=== PATIENT | female | born 1945 | race African-American/Black ===

== ENCOUNTER 2025-01-07 16:04 | Inpatient (IN) | payer OTHER, SELFPAY ==
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
[2025-01-07 16:16] VITALS: BP 157/73; PULSE 83; RESP 18; TEMP 36.4; O2SAT 95; BMI 26.4
[2025-01-07 16:44] LABS: MANUAL DIFF FLAG NO
[2025-01-07 16:45] LABS: Hematocrit 41.6 % (37.0-47.0); Hemoglobin 14.0 g/dl (12.0-16.0); Imm Gran Abs Auto 0.03 X10*3/uL (0.00-0.03); Imm Gran Pct Auto 0.4 % (0.0-0.4); Lymphocytes Absolute Auto 2.0 X10*3/uL (1.2-4.9); Mean Corpuscular HGB Conc 33.7 g/dl (31.0-35.0); Mean Corpuscular Hemoglobin 31.5 pg (27.0-33.0); Mean Corpuscular Volume 93.7 fL (80.0-98.0); NRBC Abs Auto 0.000 X10*3/uL (0.0-0.012); NRBC Pct Auto 0.0 /100WBC (0.0-0.2); Platelet Count 197 X10*3/uL (160-400); Red Blood Count 4.44 X10*6/uL (4.20-5.50); White Blood Count 7.9 X10*3/uL (4.8-10.8)
[2025-01-07 16:46] LABS: Appearance Urine Clear; Glucose Urine UA Negative (Negative); PH 5.5 (5.0-9.0); Specific Gravity - Urine 1.025 (1.005-1.025); UMIC TRIGGER UACC YES
[2025-01-07 16:50] LABS: UACC Culture Trigger YES
[2025-01-07 17:01] LABS: Alanine Aminotransferase 21 U/L (0-31); Albumin Level 4.1 g/dL (3.5-5.0); Alkaline Phosphatase 86 U/L (39-117); Anion Gap 11 (12-20); Aspartate Amino Transferase 20 U/L (5-31); Blood Urea Nitrogen 20 mg/dL (9-16); Calcium 8.8 mg/dL (8.4-10.2); Carbon Dioxide 27 mmol/L (22-29); Chloride 110 mmol/L (96-108); Creatinine Clr Calc Pharmacy 45.0; Estimated Glomerular Filt Rate 57; Magnesium 2.0 mg/dL (1.6-2.6); Potassium 4.2 mmol/L (3.3-5.1); Sodium 144 mmol/L (135-145); Total Protein 6.6 g/dL (6.5-8.0)
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
[2025-01-07 18:03] LABS: Resp Syncy Virus RNA Qual PCR NEGATIVE (Negative); SARS COV2 PCR INHOUSE NEGATIVE (Negative)
[2025-01-07 22:23] VITALS: BP 166/84; PULSE 95; RESP 18; TEMP 36; O2SAT 95
--- NOTE | 2025-01-07 23:31 | MHC.CARE ---
Evaluated by care team and found appropriate for [facility]PL[facility]. Pt is placed on a section 12 and bed search will begin. If placement is not secured a mental status update will occur to determine if pt continues to meet criteria for a higher level of care. RN notified and ED attending in agrrement with the dispo at this time. Attempted to contact pt's son/HCP to inform him of the disposition determined however, he was unable to be reached and mailbox was full therefore a voicemail was unable to be provided at this time. It is to be noted, he was agreeable and open to all treatment recommendations when initially contacted for collateral however, did state that he had to work in the morning and requested to be updated after 330PM tomorrow and also stated that he would be coming to the ED as he was asked to bring pt's inhaler by RN. Information will be passed to first shift to contact son and inform him of bed search.
--- NOTE | 2025-01-08 | ECG_ITS ---
Test Reason : CHECK PROLONGED QT Blood Pressure : */* mmHG Vent. Rate : 65 BPM Atrial Rate : 65 BPM P-R Int : 202 ms QRS Dur : 74 ms QT Int : 420 ms P-R-T Axes : 63 44 66 degrees QTcB Int : 436 ms Normal sinus rhythm Normal ECG No previous ECGs available Referred By: Clemente Pineda Electronically Signed By: CHRIS MOYER MD
--- NOTE | 2025-01-08 02:38 | PC.NURSE ---
Took report from off-going RN at 0115 hours. Pt is a 79 y/o female who presented to the ED with son for evaluation of increasing aggression and agitation. Pt is poor historian. History is significant for dementia, and attends a day program. Resides with son and son's girlfriend. Pt is arousable with verbal stimuli, but is only oriented to son and son's girlfriend. Not fully understanding why she is here at [facility], needs frequent re-orientation to surroundings by staff. Ambulates with a steady gait unassisted. Uses the bathroom as desired. Experiences brief episodes of lucid speech and thought. Recommendation by Care team is inpatient level of care. Pt is on a section 12 and a bed search is ongoing. Will continue to monitor for any changes.
--- NOTE | 2025-01-08 05:27 | PC.NURSE ---
Pt has been sleeping most of the shift, appears comfortable. Changes positions independently as desired. Easily arousable to verbal stimuli. No needs verbalized at this time. Safety checks continued every 15 min. Will continue to monitor for any changes.
--- NOTE | 2025-01-08 05:32 | PC.NURSE ---
Pt is OOB to use the bathroom and then ambulated back to bed without issue. Minimal redirecting needed.
--- NOTE | 2025-01-08 07:42 | PHA.MEDREC ---
Pharmacy Consult ? Medication Reconciliation Pharmacy has reviewed the medication reconciliation done by nursing.
--- NOTE | 2025-01-08 07:51 | PC.NURSE ---
Assumed care of patient at 0645, patient appears to be in no apparent distress this am, sat up in chair to eat breakfast, now laying back in bed, respirations even and unlabored. Continue plan of care for Hanna IPLOC
[2025-01-08 08:20] VITALS: BP 144/67; PULSE 73; RESP 16; TEMP 36.8; O2SAT 98
[2025-01-08 08:21] VITALS: BP 144/67
[2025-01-08 11:04] LABS: Cannabinoid Screen Urine Not Detected (Not Detect)
[2025-01-08 14:56] VITALS: BP 147/72; PULSE 87; RESP 16; TEMP 36.6; O2SAT 96
[2025-01-08 18:57] VITALS: BMI 26.0
--- NOTE | 2025-01-08 18:59 | PC.ADMIT ---
Pt a 79-year-old female with a history of early dementia who presented to the ED with her son due to concerns of increased agitation and disorganization at the day program she attends from 8am-2pm called [facility] [employer] [facility] . Pt was admitted to ~14:40 by wheelchair. During the admission process pt is calm, cooperative, able to answer questions logically and clearly, and AOX2 (person and place, but poor insight into situation and not remembering the date). She denies all psych symptoms and asks why am I here? . Pt explained why she is here and was accepting of answer provided. Pt able to remember who her PCP is, insurance, preferred pharmacy and signed ROIs. Pt reassured t/w that she knew what it was that she was signing. Pt is allergic to aspirin. She does not use alcohol or other substance. States she smokes 6 cigarettes a day for the past 2 years. Wants the nicotine patch. Declined quitworks. Skin check completed with no significant findings.
[2025-01-08 20:00] VITALS: BP 150/76; PULSE 88; RESP 17; TEMP 36.7; O2SAT 96
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
[2025-01-09 08:13] LABS: Hemoglobin A1C 135.5703 umol/L; Total Hemoglobin (HGBA1C) 3644.8763 umol/L
[2025-01-09 08:20] LABS: Alanine Aminotransferase 21 U/L (0-31); Albumin Level 3.8 g/dL (3.5-5.0); Alkaline Phosphatase 83 U/L (39-117); Anion Gap 11 (12-20); Aspartate Amino Transferase 19 U/L (5-31); Blood Urea Nitrogen 28 mg/dL (9-16); Calcium 8.9 mg/dL (8.4-10.2); Carbon Dioxide 30 mmol/L (22-29); Chloride 105 mmol/L (96-108); Cholesterol 124 mg/dL (<200); Creatinine Clr Calc Pharmacy 41.2; Estimated Glomerular Filt Rate 52; HDL Cholesterol 50 mg/dL (>40); Potassium 4.4 mmol/L (3.3-5.1); Sodium 142 mmol/L (135-145); Total Protein 6.2 g/dL (6.5-8.0); Triglycerides 100 mg/dL (<150)
[2025-01-09 08:35] LABS: Thyroid Stimulating Hormone 1.12 uIU/mL (0.32-4.0)
[2025-01-09 08:39] VITALS: BP 123/59; PULSE 77; RESP 16; TEMP 36.6; O2SAT 98
[2025-01-09 08:49] LABS: Folate 9.5 ng/mL (> or = 4.0); Vitamin B12 377 pg/mL (200-900)
[2025-01-09] MEDS: Nicotine 7 MG PATCH.TD24 TRANSDERMA (13:03)
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
[2025-01-09 20:00] VITALS: BP 125/78; PULSE 89; RESP 16; TEMP 36.5; O2SAT 97
[2025-01-10 08:05] VITALS: BP 155/72; PULSE 93; RESP 16; TEMP 36.2; O2SAT 97
[2025-01-10 08:27] VITALS: BP 155/72; PULSE 93; RESP 16; TEMP 36.2; O2SAT 97
[2025-01-10] MEDS: Nicotine 7 MG PATCH.TD24 TRANSDERMA (08:29)
[2025-01-10 09:49] VITALS: BMI 26.3
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
[2025-01-11 08:00] VITALS: BP 139/71; PULSE 75; RESP 16; TEMP 36.2; O2SAT 97
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
[2025-01-11 08:52] VITALS: BP 139/71
[2025-01-11] MEDS: Nicotine 7 MG PATCH.TD24 TRANSDERMA (08:52)
[2025-01-11 20:00] VITALS: BP 150/67; PULSE 83; RESP 16; TEMP 37.1; O2SAT 99
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
[2025-01-12 08:00] VITALS: BP 163/77; PULSE 96; RESP 18; TEMP 35.7; O2SAT 95
[2025-01-12] MEDS: Nicotine 7 MG PATCH.TD24 TRANSDERMA (08:53)
[2025-01-12 20:00] VITALS: RESP 15; TEMP 36.3; O2SAT 96
[2025-01-13 08:00] VITALS: BP 135/64; PULSE 67; RESP 16; TEMP 36.4; O2SAT 99
[2025-01-13] MEDS: Nicotine 7 MG PATCH.TD24 TRANSDERMA (08:57)
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
[2025-01-13 15:48] LABS: Appearance Urine Clear; Glucose Urine UA Negative (Negative); PH 5.5 (5.0-9.0); Specific Gravity - Urine 1.015 (1.005-1.025); UMIC TRIGGER UA YES
[2025-01-13 20:00] VITALS: BP 118/55; PULSE 71; RESP 16; TEMP 36.6; O2SAT 95
[2025-01-14 08:00] VITALS: BP 132/62; PULSE 70; RESP 18; TEMP 36.6; O2SAT 98
[2025-01-14] MEDS: Nicotine 7 MG PATCH.TD24 TRANSDERMA (08:50)
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
--- NOTE | 2025-01-14 11:30 | P.PNPSI_ITS ---
Subjective Subjective Date of Service: 01/14/25 Reason For Visit: si Interim History: calm, cooperative, pleasant. doesn't know why she is here in the medical facility, unable to say it is a mental health unit, unable to identify an mental health or medical problems she has. Mental Status Exam Mental Status Exam Narrative: adequately dressed and groomed. no PMA/PMR. cooperative. speech nml rate, amount, loudness, tone, latency. thoughts linear and logical in brief interaction. poverty of content. affect constricted, normo-intense, non- labile. mood euthymic. no SI/HI/AVH expressed. Diagnostics Vital Signs (24Hr): Vital Signs - 24 hr 01/13/25 20:00 01/14/25 08:00 Temperature 97.9 F 97.8 F Pulse Rate 71 70 Respiratory Rate 16 18 Blood Pressure 118/55 L 132/62 Pulse Oximetry 95 98 Oxygen Delivery Method Room Air Room Air BMI result Body Mass Index 26.3 Labs 01/07/25 16:30 01/09/25 07:17 Labs: Laboratory Results - last 48 hr 01/13/25 15:30 Urine Color Yellow Urine Appearance Clear Urine pH 5.5 Ur Specific [place] 1.015 Urine Protein Negative Urine Glucose (UA) Negative Urine Ketones Negative Urine Blood Negative Urine Nitrite Negative Ur Leukocyte Esterase Moderate (2+) H Urine RBC 0-2 Urine WBC 6-10 H Ur Squamous Epith Cells 6-10 Urine Bacteria Trace Hyaline Casts 0-2 Medications Medications Current Medications Acetaminophen (Acetaminophen 325 Mg Tablet) 650 mg PO Q6H PRN PRN Reason: Headache/Pain, Scale 1-10 Last Admin: 01/10/25 23:21 Dose: 650 mg Al Hydroxide/Mg Hydroxide (Magnesium Hydrox/Alum Hydrox 30 Ml Oral.Susp) 30 ml PO Q6H PRN PRN Reason: Heartburn/Nausea Albuterol Sulfate (Albuterol Sulfate 90 Mcg 8 Gm Inhaler) 2 puff INHALE Q6H PRN PRN Reason: Wheezing Amlodipine Besylate (Amlodipine Besylate 5 Mg Tablet) 5 mg PO DAILY [facility]; Protocol Last Admin: 01/14/25 08:50 Dose: 5 mg Atorvastatin Calcium (Atorvastatin Calcium 40 Mg Tablet) 40 mg PO BEDTIME BUD Last Admin: 01/13/25 20:34 Dose: 40 mg Guaifenesin (Guaifenesin 200 Mg/10 Ml 10 Ml Liquid) 10 ml PO Q6H PRN PRN Reason: Cough Hydroxyzine HCl (Hydroxyzine Hcl 25 Mg Tablet) 25 mg PO Q6H PRN PRN Reason: Anxiety Magnesium Hydroxide (Milk Of Magnesia 30 Ml Oral.Susp) 30 ml PO DAILY PRN PRN Reason: Constipation Melatonin (Melatonin 3 Mg Tablet) 6 mg PO BEDTIME [facility] Last Admin: 01/13/25 20:34 Dose: 6 mg Nicotine (Nicotine 7 Mg Patch.Td24) 7 mg TRANSDERMA DAILY [facility] Last Admin: 01/14/25 08:50 Dose: 7 mg Nicotine Polacrilex (Nicotine Polacrilex 2 Mg Gum) 2 mg BUCCAL Q2H PRN PRN Reason: Nicotine Cravings Non-Formulary Medication (Umeclidinium-Vilanterol [Anoro Ellipta]) 1 each INHALE DAILY [facility] Quetiapine Fumarate (Quetiapine Fumarate 25 Mg Tablet) 25 mg PO Q6H PRN PRN Reason: agitation Quetiapine Fumarate (Quetiapine Fumarate 50 Mg Tablet) 150 mg PO BEDTIME [facility] Last Admin: 01/13/25 20:34 Dose: 150 mg Trazodone HCl (Trazodone Hcl 50 Mg Tablet) 50 mg PO BEDTIME MRX1 PRN PRN Reason: Insomnia Last Admin: 01/13/25 20:34 Dose: 50 mg Allergies Allergies Allergy/AdvReac Type Severity Reaction Status Date / Time aspirin Allergy Unknown Verified 01/07/25 16:17 Assessment & Plan Assessment & Plan (1) Agitation due to dementia: Status: Acute Code(s): F03.911 - Unspecified dementia, unspecified severity, with agitation (2) Alzheimer dementia: Status: Acute Code(s): G30.9 - Alzheimer's disease, unspecified; F02.80 - Dementia in other diseases classified elsewhere, unspecified severity, without behavioral disturbance, psychotic disturbance, mood disturbance, and anxiety Plan calm, cooperative, pleasant. severe dementia. continue current mgmt. awaiting placement. Reason for continued inpatient stay Substantial Risk for: inability to function and rapid decompensation Time Spent With Patient Time: Total time managing care of this patient today ____ minutes.
--- NOTE | 2025-01-14 11:39 | HO.PM.IMCN ---
History of Present Illness Data of Consult Service Date: 01/14/25 Primary Care Provider: Unknown Physician HPI Reason for consult: Medical management 79-year-old female with a past medical history of Alzheimer's dementia, hypertension and hyperlipidemia and COPD, + smoker. She presented to the ED with agitation and physical aggression. She is admitted to the geripsych unit for stabilization. On exam she is alert, appropriately dressed. In no apparent distress. She denies any shortness of breath or chest pain. She denies any medical concerns. Her blood pressure has been stable Review of Systems Review of Systems: She denies any shortness of breath or chest pain. She denies any pain. No nausea or abdominal pain. PMFSH Social History Household Members: Children Housing: Apartment Do you presently have visiting nurse or other home services: No Patient Tobacco Use Status: Current everyday Tobacco user Tobacco use type: Cigarette Cigarettes Per Day: 4 Years Smoked: 2 Smoked in Last 30 Days: Yes Patient Interested in Nicotine Replacement: Yes Patient Given Instructions on How to Stop Smoking: Yes Date Education Initiated: 01/08/25 Second Hand Smoke Exposure: No Currently Displaying Signs/Symptoms of Drug Intoxication Withdrawal: No Have you been hit, kicked, punched, or otherwise hurt by someone within the past year? If so, by whom?: No Do you feel safe in your current relationship?: No Current Relationship Is there a partner from a previous relationship who is making you feel unsafe now?: No Are you made to feel afraid or neglected: No Spiritual Healthcare Practices: none Baptism Healthcare Practices: Orthodox Cultural Healthcare Practices: none Advance Directives: No (Unknown) Advance Directives Information Provided: Yes Do you have thoughts of harming others: None Do you have a plan to hurt others: No Plan Recently lost weight without trying: No How much weight loss: Not applicable Eating poorly because of decreased appetite: No Nutrition screen score: 0 Nutrition Risks: No Nutritional Risk Patient : No : No Poor oral hygiene: No service: No Sexual orientation: Straight/Heterosexual Meds Allergies Allergy/AdvReac Type Severity Reaction Status Date / Time aspirin Allergy Unknown Verified 01/07/25 16:17 Active Medications: Current Medications Acetaminophen (Acetaminophen 325 Mg Tablet) 650 mg PO Q6H PRN PRN Reason: Headache/Pain, Scale 1-10 Last Admin: 01/10/25 23:21 Dose: 650 mg Al Hydroxide/Mg Hydroxide (Magnesium Hydrox/Alum Hydrox 30 Ml Oral.Susp) 30 ml PO Q6H PRN PRN Reason: Heartburn/Nausea Albuterol Sulfate (Albuterol Sulfate 90 Mcg 8 Gm Inhaler) 2 puff INHALE Q6H PRN PRN Reason: Wheezing Amlodipine Besylate (Amlodipine Besylate 5 Mg Tablet) 5 mg PO DAILY [facility]; Protocol Last Admin: 01/14/25 08:50 Dose: 5 mg Atorvastatin Calcium (Atorvastatin Calcium 40 Mg Tablet) 40 mg PO BEDTIME [facility] Last Admin: 01/13/25 20:34 Dose: 40 mg Guaifenesin (Guaifenesin 200 Mg/10 Ml 10 Ml Liquid) 10 ml PO Q6H PRN PRN Reason: Cough Hydroxyzine HCl (Hydroxyzine Hcl 25 Mg Tablet) 25 mg PO Q6H PRN PRN Reason: Anxiety Magnesium Hydroxide (Milk Of Magnesia 30 Ml Oral.Susp) 30 ml PO DAILY PRN PRN Reason: Constipation Melatonin (Melatonin 3 Mg Tablet) 6 mg PO BEDTIME [facility] Last Admin: 01/13/25 20:34 Dose: 6 mg Nicotine (Nicotine 7 Mg Patch.Td24) 7 mg TRANSDERMA DAILY [facility] Last Admin: 01/14/25 08:50 Dose: 7 mg Nicotine Polacrilex (Nicotine Polacrilex 2 Mg Gum) 2 mg BUCCAL Q2H PRN PRN Reason: Nicotine Cravings Non-Formulary Medication (Umeclidinium-Vilanterol [Anoro Ellipta]) 1 each INHALE DAILY [facility] Quetiapine Fumarate (Quetiapine Fumarate 25 Mg Tablet) 25 mg PO Q6H PRN PRN Reason: agitation Quetiapine Fumarate (Quetiapine Fumarate 50 Mg Tablet) 150 mg PO BEDTIME [facility] Last Admin: 01/13/25 20:34 Dose: 150 mg Trazodone HCl (Trazodone Hcl 50 Mg Tablet) 50 mg PO BEDTIME MRX1 PRN PRN Reason: Insomnia Last Admin: 01/13/25 20:34 Dose: 50 mg Home Medications ?Medication ?Instructions ?Recorded ?Confirmed ?Last Taken ?Type albuterol sulfate 90 mcg/actuation 2 puff inhalation Q6H PRN wheezing 01/07/25 01/07/25 Unknown History aerosol inhaler amlodipine 5 mg tablet 5 mg PO DAILY 01/07/25 01/07/25 01/07/25 07:00 History melatonin 5 mg tablet 5 mg PO BEDTIME 01/07/25 01/07/25 01/06/25 19:00 History quetiapine 100 mg tablet 100 mg PO BEDTIME 01/07/25 01/07/25 01/06/25 19:00 History rosuvastatin 10 mg tablet 10 mg PO BEDTIME 01/07/25 01/07/25 01/06/25 19:00 History umeclidinium 62.5 mcg-vilanterol 1 ea inhalation DAILY 01/07/25 01/07/25 01/07/25 07:00 History 25 mcg/actuation powdr for inhalation (Anoro Ellipta) Physical Exam Vital Signs and Narrative: Vital Signs: Last Vital Signs Temp 97.8 F 01/14/25 08:00 Pulse 70 01/14/25 08:00 Resp 18 01/14/25 08:00 BP 132/62 01/14/25 08:00 Pulse Ox 98 01/14/25 08:00 O2 Del Method Room Air 01/14/25 08:00 BMI result Body Mass Index 26.3 CONST: Alert and oriented, in NAD. Well nourished HEENT: Normocephalic, atraumatic, MMM, Eyes clear, Neck supple RESP: Lungs clear, RRR even and regular HEART:,RRR, S1, S2. No murmur, no edema GI:Abdomen Soft NT, ND. + BS times four :Deferred SKIN: Warm dry and intact, no visible lesions or rashes NEURO:CN II-XII Intact bilaterally, Sensation intact. Speech clear PSYCH: Calm affect Results Labs 01/07/25 16:30 01/09/25 07:17 Labs: Laboratory Results - last 24 hr 01/13/25 15:30 Urine Color Yellow Urine Appearance Clear Urine pH 5.5 Ur Specific [place] 1.015 Urine Protein Negative Urine Glucose (UA) Negative Urine Ketones Negative Urine Blood Negative Urine Nitrite Negative Ur Leukocyte Esterase Moderate (2+) H Urine RBC 0-2 Urine WBC 6-10 H Ur Squamous Epith Cells 6-10 Urine Bacteria Trace Hyaline Casts 0-2 Assessment and Plan (1) COPD (chronic obstructive pulmonary disease): Status: Acute Plan Dementia with agitation Treatment per psychiatric team COPD/tobacco misuse Continue nicotine patches, continue to encourage smoking cessation Continue Anoro Ellipta and albuterol as needed Not in acute exacerbation Hypertension/hyperlipidemia Continue amlodipine and atorvastatin. Blood pressure in acceptable range Thank you for allowing me to participate in the care of this patient. Will follow as needed. Please reconsult of any acute concerns or issues arise
--- NOTE | 2025-01-14 13:40 | HO.HCP_ITS ---
Health Care Proxy Invocation Health Care Proxy Declaration: I, Kenrick Craven MD , on the date cited below, have determined that, ____Haley Charlton , lacks the capacity to make or communicate, informed health care decision. This determination is made in accordance with accepted standards of medical judgment and pursuant to [place] 201[place], the [facility] Care Proxy Law. The cause, nature, extent and probable duration of the patient's incapacity are described below: Cause: dementia Nature: memory and cognitive processing Extent: complete Probable Duration of Patient's Incapacity: indefinite
[2025-01-14 20:00] VITALS: BP 154/72; PULSE 86; RESP 18; TEMP 35.9; O2SAT 94
[2025-01-15 07:41] VITALS: BP 130/65; PULSE 75; RESP 16; TEMP 35.9; O2SAT 95
[2025-01-15] MEDS: PT OWN (Umeclidinium-Vilanterol [Anoro Ellipta] 62.5-25 mcg/actuation bl 1 EACH INHALE (08:18)
[2025-01-15] MEDS: Nicotine 7 MG PATCH.TD24 TRANSDERMA (08:19)
--- NOTE | 2025-01-15 12:07 | P.PNPSI_ITS ---
Subjective Subjective Date of Service: 01/15/25 Reason For Visit: si Interim History: feeling well. no complaints or requests. per staff, denies dep/anx. eating well. HCP invoked. guarded. denies Sx. sundowning starting 4-5 pm. slept 8 hours. Mental Status Exam Mental Status Exam Narrative: adequately dressed and groomed. no PMA/PMR. cooperative. speech nml rate, amount, loudness, tone, latency. thoughts linear and logical in brief interaction. poverty of content. affect constricted, normo-intense, non- labile. mood euthymic. no SI/HI/AVH expressed. Diagnostics Vital Signs (24Hr): Vital Signs - 24 hr 01/14/25 20:00 01/15/25 07:41 Temperature 96.7 F L 96.7 F L Pulse Rate 86 75 Respiratory Rate 18 16 Blood Pressure 154/72 H 130/65 Pulse Oximetry 94 95 Oxygen Delivery Method Room Air Room Air BMI result Body Mass Index 26.3 Labs 01/07/25 16:30 01/09/25 07:17 Labs: Laboratory Results - last 48 hr 01/13/25 15:30 Urine Color Yellow Urine Appearance Clear Urine pH 5.5 Ur Specific [place] 1.015 Urine Protein Negative Urine Glucose (UA) Negative Urine Ketones Negative Urine Blood Negative Urine Nitrite Negative Ur Leukocyte Esterase Moderate (2+) H Urine RBC 0-2 Urine WBC 6-10 H Ur Squamous Epith Cells 6-10 Urine Bacteria Trace Hyaline Casts 0-2 Medications Medications Current Medications Acetaminophen (Acetaminophen 325 Mg Tablet) 650 mg PO Q6H PRN PRN Reason: Headache/Pain, Scale 1-10 Last Admin: 01/10/25 23:21 Dose: 650 mg Al Hydroxide/Mg Hydroxide (Magnesium Hydrox/Alum Hydrox 30 Ml Oral.Susp) 30 ml PO Q6H PRN PRN Reason: Heartburn/Nausea Albuterol Sulfate (Albuterol Sulfate 90 Mcg 8 Gm Inhaler) 2 puff INHALE Q6H PRN PRN Reason: Wheezing Amlodipine Besylate (Amlodipine Besylate 5 Mg Tablet) 5 mg PO DAILY [facility]; Protocol Last Admin: 01/15/25 08:22 Dose: 5 mg Atorvastatin Calcium (Atorvastatin Calcium 40 Mg Tablet) 40 mg PO BEDTIME [facility] Last Admin: 01/14/25 20:38 Dose: 40 mg Guaifenesin (Guaifenesin 200 Mg/10 Ml 10 Ml Liquid) 10 ml PO Q6H PRN PRN Reason: Cough Hydroxyzine HCl (Hydroxyzine Hcl 25 Mg Tablet) 25 mg PO Q6H PRN PRN Reason: Anxiety Magnesium Hydroxide (Milk Of Magnesia 30 Ml Oral.Susp) 30 ml PO DAILY PRN PRN Reason: Constipation Melatonin (Melatonin 3 Mg Tablet) 6 mg PO BEDTIME [facility] Last Admin: 01/14/25 20:38 Dose: 6 mg Nicotine (Nicotine 7 Mg Patch.Td24) 7 mg TRANSDERMA DAILY [facility] Last Admin: 01/15/25 08:19 Dose: 7 mg Nicotine Polacrilex (Nicotine Polacrilex 2 Mg Gum) 2 mg BUCCAL Q2H PRN PRN Reason: Nicotine Cravings Pt Own (Umeclidinium -Vilanterol [Anoro Ellipta] 62.5-25 Mcg /Actuation Bl 1 each INHALE RDAILY [facility] Last Admin: 01/15/25 08:18 Dose: 1 each Quetiapine Fumarate (Quetiapine Fumarate 25 Mg Tablet) 25 mg PO Q6H PRN PRN Reason: agitation Quetiapine Fumarate (Quetiapine Fumarate 50 Mg Tablet) 150 mg PO BEDTIME [facility] Last Admin: 01/14/25 20:38 Dose: 150 mg Trazodone HCl (Trazodone Hcl 50 Mg Tablet) 50 mg PO BEDTIME MRX1 PRN PRN Reason: Insomnia Last Admin: 01/14/25 20:38 Dose: 50 mg Allergies Allergies Allergy/AdvReac Type Severity Reaction Status Date / Time aspirin Allergy Unknown Verified 01/07/25 16:17 Assessment & Plan Assessment & Plan (1) COPD (chronic obstructive pulmonary disease): Status: Acute Code(s): J44.9 - Chronic obstructive pulmonary disease, unspecified Assessment and Plan: Dementia with agitation Treatment per psychiatric team COPD/tobacco misuse Continue nicotine patches, continue to encourage smoking cessation Continue Anoro Ellipta and albuterol as needed Not in acute exacerbation Hypertension/hyperlipidemia Continue amlodipine and atorvastatin. Blood pressure in acceptable range Thank you for allowing me to participate in the care of this patient. Will follow as needed. Please reconsult of any acute concerns or issues arise (2) Alzheimer dementia: Status: Acute Code(s): G30.9 - Alzheimer's disease, unspecified; F02.80 - Dementia in other diseases classified elsewhere, unspecified severity, without behavioral disturbance, psychotic disturbance, mood disturbance, and anxiety (3) Agitation due to dementia: Status: Acute Code(s): F03.911 - Unspecified dementia, unspecified severity, with agitation Plan calm, cooperative, pleasant in the morning. per staff, as of 4-5 pm. schedule seroquel 25 mg Q4pm. otherwise continue current mgmt. Reason for continued inpatient stay Substantial Risk for: harm to others and inability to function Time Spent With Patient Time: Total time managing care of this patient today ____ minutes.
--- NOTE | 2025-01-15 16:39 | P.PNPSI_ITS ---
Subjective Subjective Reason For Visit: si Diagnostics Vital Signs (24Hr): Vital Signs - 24 hr 01/14/25 20:00 01/15/25 07:41 Temperature 96.7 F L 96.7 F L Pulse Rate 86 75 Respiratory Rate 18 16 Blood Pressure 154/72 H 130/65 Pulse Oximetry 94 95 Oxygen Delivery Method Room Air Room Air BMI result Body Mass Index 26.3 Labs 01/07/25 16:30 01/09/25 07:17 Medications Medications Current Medications Acetaminophen (Acetaminophen 325 Mg Tablet) 650 mg PO Q6H PRN PRN Reason: Headache/Pain, Scale 1-10 Last Admin: 01/10/25 23:21 Dose: 650 mg Al Hydroxide/Mg Hydroxide (Magnesium Hydrox/Alum Hydrox 30 Ml Oral.Susp) 30 ml PO Q6H PRN PRN Reason: Heartburn/Nausea Albuterol Sulfate (Albuterol Sulfate 90 Mcg 8 Gm Inhaler) 2 puff INHALE Q6H PRN PRN Reason: Wheezing Amlodipine Besylate (Amlodipine Besylate 5 Mg Tablet) 5 mg PO DAILY [facility]; Protocol Last Admin: 01/15/25 08:22 Dose: 5 mg Atorvastatin Calcium (Atorvastatin Calcium 40 Mg Tablet) 40 mg PO BEDTIME [facility] Last Admin: 01/14/25 20:38 Dose: 40 mg Guaifenesin (Guaifenesin 200 Mg/10 Ml 10 Ml Liquid) 10 ml PO Q6H PRN PRN Reason: Cough Hydroxyzine HCl (Hydroxyzine Hcl 25 Mg Tablet) 25 mg PO Q6H PRN PRN Reason: Anxiety Magnesium Hydroxide (Milk Of Magnesia 30 Ml Oral.Susp) 30 ml PO DAILY PRN PRN Reason: Constipation Melatonin (Melatonin 3 Mg Tablet) 6 mg PO BEDTIME [facility] Last Admin: 01/14/25 20:38 Dose: 6 mg Nicotine (Nicotine 7 Mg Patch.Td24) 7 mg TRANSDERMA DAILY [facility] Last Admin: 01/15/25 08:19 Dose: 7 mg Nicotine Polacrilex (Nicotine Polacrilex 2 Mg Gum) 2 mg BUCCAL Q2H PRN PRN Reason: Nicotine Cravings Pt Own (Umeclidinium -Vilanterol [Anoro Ellipta] 62.5-25 Mcg /Actuation Bl 1 each INHALE RDAILY [facility] Last Admin: 01/15/25 08:18 Dose: 1 each Quetiapine Fumarate (Quetiapine Fumarate 25 Mg Tablet) 25 mg PO Q6H PRN PRN Reason: agitation Quetiapine Fumarate (Quetiapine Fumarate 50 Mg Tablet) 150 mg PO BEDTIME [facility] Last Admin: 01/14/25 20:38 Dose: 150 mg Quetiapine Fumarate (Quetiapine Fumarate 25 Mg Tablet) 25 mg PO DAILY@1600 [facility] Last Admin: 01/15/25 15:49 Dose: 25 mg Trazodone HCl (Trazodone Hcl 50 Mg Tablet) 50 mg PO BEDTIME MRX1 PRN PRN Reason: Insomnia Last Admin: 01/14/25 20:38 Dose: 50 mg Allergies Allergies Allergy/AdvReac Type Severity Reaction Status Date / Time aspirin Allergy Unknown Verified 01/07/25 16:17 Assessment & Plan Assessment & Plan (1) COPD (chronic obstructive pulmonary disease): Status: Acute Code(s): J44.9 - Chronic obstructive pulmonary disease, unspecified Assessment and Plan: Dementia with agitation Treatment per psychiatric team COPD/tobacco misuse Continue nicotine patches, continue to encourage smoking cessation Continue Anoro Ellipta and albuterol as needed Not in acute exacerbation Hypertension/hyperlipidemia Continue amlodipine and atorvastatin. Blood pressure in acceptable range Thank you for allowing me to participate in the care of this patient. Will follow as needed. Please reconsult of any acute concerns or issues arise (2) Alzheimer dementia: Status: Acute Code(s): G30.9 - Alzheimer's disease, unspecified; F02.80 - Dementia in other diseases classified elsewhere, unspecified severity, without behavioral disturbance, psychotic disturbance, mood disturbance, and anxiety (3) Agitation due to dementia: Status: Acute Code(s): F03.911 - Unspecified dementia, unspecified severity, with agitation Plan calm, cooperative, pleasant in the morning. per staff, as of 4-5 pm. schedule seroquel 25 mg Q4pm. otherwise continue current mgmt. Time Spent With Patient Time: Total time managing care of this patient today ____ minutes.
[2025-01-15 20:00] VITALS: BP 149/72; PULSE 88; RESP 14; TEMP 36.2; O2SAT 96
[2025-01-16 08:00] VITALS: PULSE 79; RESP 16; TEMP 36.8
[2025-01-16] MEDS: Nicotine 7 MG PATCH.TD24 TRANSDERMA (08:40)
[2025-01-16] MEDS: PT OWN (Umeclidinium-Vilanterol [Anoro Ellipta] 62.5-25 mcg/actuation bl 1 EACH INHALE (08:43)
--- NOTE | 2025-01-16 12:01 | HO.PSYCHPN ---
Subjective Subjective Date of Service: 01/16/25 Reason For Visit: si Subjective Notes: Conditional Voluntary Medical Problems Affecting Mental Status: No Interim History: Patient notes that she feels pretty good. She denies anxiety or depression. She denies SI/HI/AH/VH. Per nursing, she has been very confused. Medication Compliance: Yes Side effects from medications: No Attending Groups: Yes Review of Systems Acute medical concerns: No Mental Status Exam Mental Status Exam Narrative: Appearance: Casually dressed, adequate hygiene Behavior: Calm and cooperative throughout the interview. Eye contact is appropriate, and there are no signs of psychomotor agitation or retardation Speech: Normal volume and prosody Thought process: Disorganized Thought content: No self-harming thoughts Mood: pretty good Affect: Constricted SI:denies HI:denies VH/AH:none Delusions: None Insight/judgment: Impaired insight and judgment Memory/cog: Alert, oriented to self and time. grossly intact to conversational testing Diagnostics Vital Signs (24Hr): Vital Signs - 24 hr 01/15/25 20:00 01/16/25 08:00 Temperature 97.2 F 98.2 F Pulse Rate 88 79 Respiratory Rate 14 16 Blood Pressure 149/72 H Pulse Oximetry 96 Oxygen Delivery Method Room Air BMI result Body Mass Index 26.3 Labs 01/07/25 16:30 01/09/25 07:17 Medications Medications Current Medications Acetaminophen (Acetaminophen 325 Mg Tablet) 650 mg PO Q6H PRN PRN Reason: Headache/Pain, Scale 1-10 Last Admin: 01/10/25 23:21 Dose: 650 mg Al Hydroxide/Mg Hydroxide (Magnesium Hydrox/Alum Hydrox 30 Ml Oral.Susp) 30 ml PO Q6H PRN PRN Reason: Heartburn/Nausea Albuterol Sulfate (Albuterol Sulfate 90 Mcg 8 Gm Inhaler) 2 puff INHALE Q6H PRN PRN Reason: Wheezing Amlodipine Besylate (Amlodipine Besylate 5 Mg Tablet) 5 mg PO DAILY [facility]; Protocol Last Admin: 01/16/25 08:44 Dose: 5 mg Atorvastatin Calcium (Atorvastatin Calcium 40 Mg Tablet) 40 mg PO BEDTIME [facility] Last Admin: 01/15/25 20:39 Dose: 40 mg Guaifenesin (Guaifenesin 200 Mg/10 Ml 10 Ml Liquid) 10 ml PO Q6H PRN PRN Reason: Cough Hydroxyzine HCl (Hydroxyzine Hcl 25 Mg Tablet) 25 mg PO Q6H PRN PRN Reason: Anxiety Magnesium Hydroxide (Milk Of Magnesia 30 Ml Oral.Susp) 30 ml PO DAILY PRN PRN Reason: Constipation Melatonin (Melatonin 3 Mg Tablet) 6 mg PO BEDTIME [facility] Last Admin: 01/15/25 20:39 Dose: 6 mg Nicotine (Nicotine 7 Mg Patch.Td24) 7 mg TRANSDERMA DAILY [facility] Last Admin: 01/16/25 08:40 Dose: 7 mg Nicotine Polacrilex (Nicotine Polacrilex 2 Mg Gum) 2 mg BUCCAL Q2H PRN PRN Reason: Nicotine Cravings Pt Own (Umeclidinium -Vilanterol [Anoro Ellipta] 62.5-25 Mcg /Actuation Bl 1 each INHALE RDAILY [facility] Last Admin: 01/16/25 08:43 Dose: 1 each Quetiapine Fumarate (Quetiapine Fumarate 25 Mg Tablet) 25 mg PO Q6H PRN PRN Reason: agitation Quetiapine Fumarate (Quetiapine Fumarate 50 Mg Tablet) 150 mg PO BEDTIME [facility] Last Admin: 01/15/25 20:38 Dose: 150 mg Quetiapine Fumarate (Quetiapine Fumarate 25 Mg Tablet) 25 mg PO DAILY@1600 [facility] Last Admin: 01/15/25 15:49 Dose: 25 mg Trazodone HCl (Trazodone Hcl 50 Mg Tablet) 50 mg PO BEDTIME MRX1 PRN PRN Reason: Insomnia Last Admin: 01/15/25 20:39 Dose: 50 mg Allergies Allergies Allergy/AdvReac Type Severity Reaction Status Date / Time aspirin Allergy Unknown Verified 01/07/25 16:17 Assessment & Plan Assessment & Plan (1) COPD (chronic obstructive pulmonary disease): Status: Acute Code(s): J44.9 - Chronic obstructive pulmonary disease, unspecified Assessment and Plan: Dementia with agitation Treatment per psychiatric team COPD/tobacco misuse Continue nicotine patches, continue to encourage smoking cessation Continue Anoro Ellipta and albuterol as needed Not in acute exacerbation Hypertension/hyperlipidemia Continue amlodipine and atorvastatin. Blood pressure in acceptable range Thank you for allowing me to participate in the care of this patient. Will follow as needed. Please reconsult of any acute concerns or issues arise (2) Alzheimer dementia: Status: Acute Code(s): G30.9 - Alzheimer's disease, unspecified; F02.80 - Dementia in other diseases classified elsewhere, unspecified severity, without behavioral disturbance, psychotic disturbance, mood disturbance, and anxiety (3) Agitation due to dementia: Status: Acute Code(s): F03.911 - Unspecified dementia, unspecified severity, with agitation Plan 01/16: Patient notes that she feels pretty good. She denies anxiety or depression. She denies SI/HI/AH/VH. Per nursing, she has been very confused. Continue current treatment regimen. Patient educated on: therapeutic strategies Reason for continued inpatient stay Substantial Risk for: rapid decompensation Time Spent With Patient Time: Total time managing care of this patient today ____ minutes.
--- NOTE | 2025-01-16 17:15 | PC.NURSE ---
Hydroxyzine given due to continually walking up and down the sequeira into her bathroom and asking where her room was .
[2025-01-16 20:00] VITALS: BP 136/66; PULSE 85; RESP 16; TEMP 37.6; O2SAT 95
[2025-01-17 08:00] VITALS: BP 152/69; PULSE 75; RESP 16; TEMP 37.2; O2SAT 93
[2025-01-17] MEDS: PT OWN (Umeclidinium-Vilanterol [Anoro Ellipta] 62.5-25 mcg/actuation bl 1 EACH INHALE (08:32)
[2025-01-17] MEDS: Nicotine 7 MG PATCH.TD24 TRANSDERMA (08:32)
--- NOTE | 2025-01-17 13:52 | HO.PSYCHPN ---
Subjective Subjective Date of Service: 01/17/25 Reason For Visit: si Interim History: in bed, calm, alert. pleasant. no questions or complaints. per staff, no issues. family mtg today. Mental Status Exam Mental Status Exam Narrative: adequately dressed and groomed. no PMA/PMR. cooperative. speech nml rate, amount, loudness, tone, latency. thoughts linear and logical in brief interaction. poverty of content. affect constricted, normo-intense, non-labile. mood euthymic. no SI/HI/AVH expressed. Diagnostics Vital Signs (24Hr): Vital Signs - 24 hr 01/16/25 20:00 01/17/25 08:00 Temperature 99.7 F 99.0 F Pulse Rate 85 75 Respiratory Rate 16 16 Blood Pressure 136/66 152/69 H Pulse Oximetry 95 93 Oxygen Delivery Method Room Air Room Air BMI result Body Mass Index 26.3 Labs 01/07/25 16:30 01/09/25 07:17 Medications Medications Current Medications Acetaminophen (Acetaminophen 325 Mg Tablet) 650 mg PO Q6H PRN PRN Reason: Headache/Pain, Scale 1-10 Last Admin: 01/10/25 23:21 Dose: 650 mg Al Hydroxide/Mg Hydroxide (Magnesium Hydrox/Alum Hydrox 30 Ml Oral.Susp) 30 ml PO Q6H PRN PRN Reason: Heartburn/Nausea Albuterol Sulfate (Albuterol Sulfate 90 Mcg 8 Gm Inhaler) 2 puff INHALE Q6H PRN PRN Reason: Wheezing Amlodipine Besylate (Amlodipine Besylate 5 Mg Tablet) 5 mg PO DAILY B[facility]; Protocol Last Admin: 01/17/25 08:33 Dose: 5 mg Atorvastatin Calcium (Atorvastatin Calcium 40 Mg Tablet) 40 mg PO BEDTIME BUD Last Admin: 01/16/25 21:24 Dose: 40 mg Guaifenesin (Guaifenesin 200 Mg/10 Ml 10 Ml Liquid) 10 ml PO Q6H PRN PRN Reason: Cough Hydroxyzine HCl (Hydroxyzine Hcl 25 Mg Tablet) 25 mg PO Q6H PRN PRN Reason: Anxiety Last Admin: 01/16/25 17:08 Dose: 25 mg Magnesium Hydroxide (Milk Of Magnesia 30 Ml Oral.Susp) 30 ml PO DAILY PRN PRN Reason: Constipation Melatonin (Melatonin 3 Mg Tablet) 6 mg PO BEDTIME BUD Last Admin: 01/16/25 21:24 Dose: 6 mg Nicotine (Nicotine 7 Mg Patch.Td24) 7 mg TRANSDERMA DAILY [facility] Last Admin: 01/17/25 08:32 Dose: 7 mg Nicotine Polacrilex (Nicotine Polacrilex 2 Mg Gum) 2 mg BUCCAL Q2H PRN PRN Reason: Nicotine Cravings Pt Own (Umeclidinium -Vilanterol [Anoro Ellipta] 62.5-25 Mcg /Actuation Bl 1 each INHALE RDAILY [facility] Last Admin: 01/17/25 08:32 Dose: 1 each Quetiapine Fumarate (Quetiapine Fumarate 25 Mg Tablet) 25 mg PO Q6H PRN PRN Reason: agitation Quetiapine Fumarate (Quetiapine Fumarate 50 Mg Tablet) 150 mg PO BEDTIME [facility] Last Admin: 01/16/25 21:24 Dose: 150 mg Quetiapine Fumarate (Quetiapine Fumarate 25 Mg Tablet) 25 mg PO DAILY@1600 [facility] Last Admin: 01/16/25 16:00 Dose: 25 mg Trazodone HCl (Trazodone Hcl 50 Mg Tablet) 50 mg PO BEDTIME MRX1 PRN PRN Reason: Insomnia Last Admin: 01/15/25 20:39 Dose: 50 mg Allergies Allergies Allergy/AdvReac Type Severity Reaction Status Date / Time aspirin Allergy Unknown Verified 01/07/25 16:17 Assessment & Plan Assessment & Plan (1) COPD (chronic obstructive pulmonary disease): Status: Acute Code(s): J44.9 - Chronic obstructive pulmonary disease, unspecified (2) Alzheimer dementia: Status: Acute Code(s): G30.9 - Alzheimer's disease, unspecified; F02.80 - Dementia in other diseases classified elsewhere, unspecified severity, without behavioral disturbance, psychotic disturbance, mood disturbance, and anxiety (3) Agitation due to dementia: Status: Acute Code(s): F03.911 - Unspecified dementia, unspecified severity, with agitation Plan 01/15: calm, cooperative, pleasant in the morning. per staff, as of 4-5 pm. schedule seroquel 25 mg Q4pm. otherwise continue current mgmt. 01/16: Patient notes that she feels pretty good. She denies anxiety or depression. She denies SI/HI/AH/VH. Per nursing, she has been very confused. Continue current treatment regimen. 01/17: stable presentation. per OT: 01/07 on the MOCA and a 3.6 on the Syed. Difficult care situation at home prob needs higher level of care than fam can provide. family mtg held, LTC will be pursued. Reason for continued inpatient stay Substantial Risk for: harm to others and inability to function Time Spent With Patient Time: Total time managing care of this patient today __45__ minutes.
[2025-01-17 20:00] VITALS: BP 149/69; PULSE 86; RESP 16; TEMP 36.4; O2SAT 98
--- NOTE | 2025-01-18 08:33 | HO.PSYCHPN ---
Subjective Subjective Date of Service: 01/18/25 Reason For Visit: si Interim History: eating breakfast. calm and pleasant. asking only when she is going to be going home. informed her son and SW are working on it, but it could take some time. Mental Status Exam Mental Status Exam Narrative: adequately dressed and groomed. no PMA/PMR. cooperative. speech nml rate, amount, loudness, tone, latency. thoughts linear and logical in brief interaction. poverty of content. affect constricted, normo-intense, non-labile. mood euthymic. no SI/HI/AVH expressed. Diagnostics Vital Signs (24Hr): Vital Signs - 24 hr 01/17/25 20:00 Temperature 97.5 F Pulse Rate 86 Respiratory Rate 16 Blood Pressure 149/69 H Pulse Oximetry 98 Oxygen Delivery Method Room Air BMI result Body Mass Index 26.3 Labs 01/07/25 16:30 01/09/25 07:17 Medications Medications Current Medications Acetaminophen (Acetaminophen 325 Mg Tablet) 650 mg PO Q6H PRN PRN Reason: Headache/Pain, Scale 1-10 Last Admin: 01/10/25 23:21 Dose: 650 mg Al Hydroxide/Mg Hydroxide (Magnesium Hydrox/Alum Hydrox 30 Ml Oral.Susp) 30 ml PO Q6H PRN PRN Reason: Heartburn/Nausea Albuterol Sulfate (Albuterol Sulfate 90 Mcg 8 Gm Inhaler) 2 puff INHALE Q6H PRN PRN Reason: Wheezing Amlodipine Besylate (Amlodipine Besylate 5 Mg Tablet) 5 mg PO DAILY [facility]; Protocol Last Admin: 01/17/25 08:33 Dose: 5 mg Atorvastatin Calcium (Atorvastatin Calcium 40 Mg Tablet) 40 mg PO BEDTIME BUD Last Admin: 01/17/25 20:20 Dose: 40 mg Guaifenesin (Guaifenesin 200 Mg/10 Ml 10 Ml Liquid) 10 ml PO Q6H PRN PRN Reason: Cough Hydroxyzine HCl (Hydroxyzine Hcl 25 Mg Tablet) 25 mg PO Q6H PRN PRN Reason: Anxiety Last Admin: 01/16/25 17:08 Dose: 25 mg Magnesium Hydroxide (Milk Of Magnesia 30 Ml Oral.Susp) 30 ml PO DAILY PRN PRN Reason: Constipation Nicotine (Nicotine 7 Mg Patch.Td24) 7 mg TRANSDERMA DAILY [facility] Last Admin: 01/17/25 08:32 Dose: 7 mg Nicotine Polacrilex (Nicotine Polacrilex 2 Mg Gum) 2 mg BUCCAL Q2H PRN PRN Reason: Nicotine Cravings Pt Own (Umeclidinium -Vilanterol [Anoro Ellipta] 62.5-25 Mcg /Actuation Bl 1 each INHALE RDAILY [facility] Last Admin: 01/17/25 08:32 Dose: 1 each Quetiapine Fumarate (Quetiapine Fumarate 25 Mg Tablet) 25 mg PO Q6H PRN PRN Reason: agitation Quetiapine Fumarate (Quetiapine Fumarate 50 Mg Tablet) 150 mg PO BEDTIME [facility] Last Admin: 01/17/25 20:20 Dose: 150 mg Quetiapine Fumarate (Quetiapine Fumarate 25 Mg Tablet) 25 mg PO DAILY@1600 [facility] Last Admin: 01/17/25 16:47 Dose: 25 mg Allergies Allergies Allergy/AdvReac Type Severity Reaction Status Date / Time aspirin Allergy Unknown Verified 01/07/25 16:17 Assessment & Plan Assessment & Plan (1) COPD (chronic obstructive pulmonary disease): Status: Acute Code(s): J44.9 - Chronic obstructive pulmonary disease, unspecified (2) Alzheimer dementia: Status: Acute Code(s): G30.9 - Alzheimer's disease, unspecified; F02.80 - Dementia in other diseases classified elsewhere, unspecified severity, without behavioral disturbance, psychotic disturbance, mood disturbance, and anxiety (3) Agitation due to dementia: Status: Acute Code(s): F03.911 - Unspecified dementia, unspecified severity, with agitation Plan 01/15: calm, cooperative, pleasant in the morning. per staff, own as of 4-5 pm. schedule seroquel 25 mg Q4pm. otherwise continue current mgmt. 01/16: Patient notes that she feels pretty good. She denies anxiety or depression. She denies SI/HI/AH/VH. Per nursing, she has been very confused. Continue current treatment regimen. 01/17: stable presentation. per OT: 01/07 on the MOCA and a 3.6 on the Syed. Difficult care situation at home prob needs higher level of care than fam can provide. family mtg held, LTC will be pursued. 01/18: calm, cooperative, pleasant. asking about discharge. informed her son and SW are working on it. continue current mgmt. Reason for continued inpatient stay Substantial Risk for: harm to others and inability to function Time Spent With Patient Time: Total time managing care of this patient today ____ minutes.
[2025-01-18 10:03] VITALS: BP 132/63; PULSE 91; RESP 16; TEMP 36.7; O2SAT 94
[2025-01-18] MEDS: PT OWN (Umeclidinium-Vilanterol [Anoro Ellipta] 62.5-25 mcg/actuation bl 1 EACH INHALE (10:06)
[2025-01-18] MEDS: Nicotine 7 MG PATCH.TD24 TRANSDERMA (10:06)
[2025-01-18 20:00] VITALS: BP 140/71; PULSE 91; RESP 18; TEMP 37; O2SAT 97
[2025-01-19 08:00] VITALS: BP 147/69; PULSE 76; RESP 16; TEMP 37.1; O2SAT 94
[2025-01-19] MEDS: Nicotine 7 MG PATCH.TD24 TRANSDERMA (08:31)
[2025-01-19] MEDS: PT OWN (Umeclidinium-Vilanterol [Anoro Ellipta] 62.5-25 mcg/actuation bl 1 EACH INHALE (08:32)
--- NOTE | 2025-01-19 17:22 | HO.PSYCHPN ---
Subjective Subjective Date of Service: 01/19/25 Reason For Visit: si Subjective Notes: Conditional Voluntary Interim History: Medical record and nursing notes reviewed; case discussed during rounds with team/nursing staff, and met with patient for supportive therapy/psychoeducation, as well as medication management. Reports she did not sleep well. Denied depression or anxiety. Feeling tired today due to not able to sleep well last night. It could be from a roommate who was up most of the night. Alert but not oriented to where she is, she thinks she is at [facility]. Denies safety concerns. Medication compliant. Medication Compliance: Yes Side effects from medications: No Review of Systems Acute medical concerns: No Medical Review of Systems: unchanged Review of Systems Review of Systems She denies any shortness of breath or chest pain. She denies any pain. No nausea or abdominal pain. Yes all other systems are reviewed and are negative Mental Status Exam Mental Status Exam Narrative: Aletr and awake, adequately dressed and groomed, cooperative. speech nml rate, amount, soft, tone, latency. thoughts linear and logical in brief interaction. poverty of content. Reting in bed, affect constricted, normal-intense, non-labile. mood euthymic. no denies SI/SIB/HI/AVH. . Diagnostics Vital Signs (24Hr): Vital Signs - 24 hr 01/18/25 20:00 01/19/25 08:00 Temperature 98.6 F 98.8 F Pulse Rate 91 76 Respiratory Rate 18 16 Blood Pressure 140/71 H 147/69 H Pulse Oximetry 97 94 Oxygen Delivery Method Room Air Room Air BMI result Body Mass Index 26.3 Labs 01/07/25 16:30 01/09/25 07:17 Medications Medications Current Medications Acetaminophen (Acetaminophen 325 Mg Tablet) 650 mg PO Q6H PRN PRN Reason: Headache/Pain, Scale 1-10 Last Admin: 01/10/25 23:21 Dose: 650 mg Al Hydroxide/Mg Hydroxide (Magnesium Hydrox/Alum Hydrox 30 Ml Oral.Susp) 30 ml PO Q6H PRN PRN Reason: Heartburn/Nausea Albuterol Sulfate (Albuterol Sulfate 90 Mcg 8 Gm Inhaler) 2 puff INHALE Q6H PRN PRN Reason: Wheezing Amlodipine Besylate (Amlodipine Besylate 5 Mg Tablet) 5 mg PO DAILY B[facility]; Protocol Last Admin: 01/19/25 08:32 Dose: 5 mg Atorvastatin Calcium (Atorvastatin Calcium 40 Mg Tablet) 40 mg PO BEDTIME [facility] Last Admin: 01/18/25 20:14 Dose: 40 mg Guaifenesin (Guaifenesin 200 Mg/10 Ml 10 Ml Liquid) 10 ml PO Q6H PRN PRN Reason: Cough Hydroxyzine HCl (Hydroxyzine Hcl 25 Mg Tablet) 25 mg PO Q6H PRN PRN Reason: Anxiety Last Admin: 01/18/25 20:15 Dose: 25 mg Magnesium Hydroxide (Milk Of Magnesia 30 Ml Oral.Susp) 30 ml PO DAILY PRN PRN Reason: Constipation Nicotine (Nicotine 7 Mg Patch.Td24) 7 mg TRANSDERMA DAILY [facility] Last Admin: 01/19/25 08:31 Dose: 7 mg Nicotine Polacrilex (Nicotine Polacrilex 2 Mg Gum) 2 mg BUCCAL Q2H PRN PRN Reason: Nicotine Cravings Pt Own (Umeclidinium -Vilanterol [Anoro Ellipta] 62.5-25 Mcg /Actuation Bl 1 each INHALE RDAILY [facility] Last Admin: 01/19/25 08:32 Dose: 1 each Quetiapine Fumarate (Quetiapine Fumarate 25 Mg Tablet) 25 mg PO Q6H PRN PRN Reason: agitation Quetiapine Fumarate (Quetiapine Fumarate 50 Mg Tablet) 150 mg PO BEDTIME [facility] Last Admin: 01/18/25 20:15 Dose: 150 mg Quetiapine Fumarate (Quetiapine Fumarate 25 Mg Tablet) 25 mg PO DAILY@1600 [facility] Last Admin: 01/19/25 16:13 Dose: 25 mg Allergies Allergies Allergy/AdvReac Type Severity Reaction Status Date / Time aspirin Allergy Unknown Verified 01/07/25 16:17 Assessment & Plan Assessment & Plan (1) COPD (chronic obstructive pulmonary disease): Status: Acute Code(s): J44.9 - Chronic obstructive pulmonary disease, unspecified (2) Alzheimer dementia: Status: Acute Code(s): G30.9 - Alzheimer's disease, unspecified; F02.80 - Dementia in other diseases classified elsewhere, unspecified severity, without behavioral disturbance, psychotic disturbance, mood disturbance, and anxiety (3) Agitation due to dementia: Status: Acute Code(s): F03.911 - Unspecified dementia, unspecified severity, with agitation Plan 01/15: calm, cooperative, pleasant in the morning. per staff, sundowning as of 4-5 pm. schedule seroquel 25 mg Q4pm. otherwise continue current mgmt. 01/16: Patient notes that she feels pretty good. She denies anxiety or depression. She denies SI/HI/AH/VH. Per nursing, she has been very confused. Continue current treatment regimen. 01/17: stable presentation. per OT: 01/07 on the MOCA and a 3.6 on the Syed. Difficult care situation at home prob needs higher level of care than fam can provide. family mtg held, LTC will be pursued. 01/18: calm, cooperative, pleasant. asking about discharge. informed her son and SW are working on it. continue current mgmt. 01/19/25: resting in bed after breakfast. Self report not sleeing well last night. Med compliant. No side effects. No med changes. Can be forgetful. She thinks she has is at [facility]- which could be her day program that she used to have activities at. Patient educated on: medication risk/benefits Informed Consent: further education needed Reason for continued inpatient stay Substantial Risk for: med/psych decompensation Time Spent With Patient Time: Total time managing care of this patient today ____ minutes.
[2025-01-19 20:00] VITALS: BP 142/65; PULSE 80; RESP 16; TEMP 36.6; O2SAT 95
[2025-01-20 08:00] VITALS: BP 120/57; PULSE 71; RESP 16; TEMP 36.6; O2SAT 97
[2025-01-20] MEDS: Nicotine 7 MG PATCH.TD24 TRANSDERMA (08:43)
[2025-01-20] MEDS: PT OWN (Umeclidinium-Vilanterol [Anoro Ellipta] 62.5-25 mcg/actuation bl 1 EACH INHALE (08:43)
--- NOTE | 2025-01-20 13:52 | P.PNPSI_ITS ---
Subjective Subjective Date of Service: 01/20/25 Reason For Visit: si Subjective Notes: Conditional Voluntary Interim History: Medical record and nursing notes reviewed; case discussed during rounds with team/nursing staff, and met with patient for supportive therapy/psychoeducation, as well as medication management. Patient slept well, no issue with appetite, was medication compliant. No side effects noted. Isolated herself in room mostly after breakfast, resting in bed. No safety concerns. Today she is aware that she is in the hospital. Medication Compliance: Yes Side effects from medications: No Attending Groups: Intermittent Review of Systems Acute medical concerns: No Medical Review of Systems: unchanged Review of Systems Review of Systems She denies any shortness of breath or chest pain. She denies any pain. No nausea or abdominal pain. Yes all other systems are reviewed and are negative Mental Status Exam Mental Status Exam Narrative: Aletr and awake, adequately dressed and groomed, cooperative. speech nml rate, amount, soft, tone, latency. thoughts linear and logical in brief interaction. poverty of content. Reting in bed, affect constricted, normal-intense, non- labile. mood euthymic. no denies SI/SIB/HI/AVH. . Diagnostics Vital Signs (24Hr): Vital Signs - 24 hr 01/19/25 20:00 01/20/25 08:00 Temperature 97.9 F 97.9 F Pulse Rate 80 71 Respiratory Rate 16 16 Blood Pressure 142/65 H 120/57 L Pulse Oximetry 95 97 Oxygen Delivery Method Room Air Room Air BMI result Body Mass Index 26.3 Labs 01/07/25 16:30 01/09/25 07:17 Medications Medications Current Medications Acetaminophen (Acetaminophen 325 Mg Tablet) 650 mg PO Q6H PRN PRN Reason: Headache/Pain, Scale 1-10 Last Admin: 01/10/25 23:21 Dose: 650 mg Al Hydroxide/Mg Hydroxide (Magnesium Hydrox/Alum Hydrox 30 Ml Oral.Susp) 30 ml PO Q6H PRN PRN Reason: Heartburn/Nausea Albuterol Sulfate (Albuterol Sulfate 90 Mcg 8 Gm Inhaler) 2 puff INHALE Q6H PRN PRN Reason: Wheezing Amlodipine Besylate (Amlodipine Besylate 5 Mg Tablet) 5 mg PO DAILY [facility]; Protocol Last Admin: 01/20/25 08:43 Dose: 5 mg Atorvastatin Calcium (Atorvastatin Calcium 40 Mg Tablet) 40 mg PO BEDTIME [facility] Last Admin: 01/19/25 20:38 Dose: 40 mg Guaifenesin (Guaifenesin 200 Mg/10 Ml 10 Ml Liquid) 10 ml PO Q6H PRN PRN Reason: Cough Hydroxyzine HCl (Hydroxyzine Hcl 25 Mg Tablet) 25 mg PO Q6H PRN PRN Reason: Anxiety Last Admin: 01/19/25 20:37 Dose: 25 mg Magnesium Hydroxide (Milk Of Magnesia 30 Ml Oral.Susp) 30 ml PO DAILY PRN PRN Reason: Constipation Nicotine (Nicotine 7 Mg Patch.Td24) 7 mg TRANSDERMA DAILY [facility] Last Admin: 01/20/25 08:43 Dose: 7 mg Nicotine Polacrilex (Nicotine Polacrilex 2 Mg Gum) 2 mg BUCCAL Q2H PRN PRN Reason: Nicotine Cravings Pt Own (Umeclidinium -Vilanterol [Anoro Ellipta] 62.5-25 Mcg /Actuation Bl 1 each INHALE RDAILY [facility] Last Admin: 01/20/25 08:43 Dose: 1 each Quetiapine Fumarate (Quetiapine Fumarate 25 Mg Tablet) 25 mg PO Q6H PRN PRN Reason: agitation Quetiapine Fumarate (Quetiapine Fumarate 50 Mg Tablet) 150 mg PO BEDTIME [facility] Last Admin: 01/19/25 20:38 Dose: 150 mg Quetiapine Fumarate (Quetiapine Fumarate 25 Mg Tablet) 25 mg PO DAILY@1600 [facility] Last Admin: 01/19/25 16:13 Dose: 25 mg Allergies Allergies Allergy/AdvReac Type Severity Reaction Status Date / Time aspirin Allergy Unknown Verified 01/07/25 16:17 Assessment & Plan Assessment & Plan (1) COPD (chronic obstructive pulmonary disease): Status: Acute Code(s): J44.9 - Chronic obstructive pulmonary disease, unspecified (2) Alzheimer dementia: Status: Acute Code(s): G30.9 - Alzheimer's disease, unspecified; F02.80 - Dementia in other diseases classified elsewhere, unspecified severity, without behavioral disturbance, psychotic disturbance, mood disturbance, and anxiety (3) Agitation due to dementia: Status: Acute Code(s): F03.911 - Unspecified dementia, unspecified severity, with agitation Plan 01/15: calm, cooperative, pleasant in the morning. per staff, sundowning as of 4-5 pm. schedule seroquel 25 mg Q4pm. otherwise continue current mgmt. 01/16: Patient notes that she feels pretty good. She denies anxiety or depression. She denies SI/HI/AH/VH. Per nursing, she has been very confused. Continue current treatment regimen. 01/17: stable presentation. per OT: 01/07 on the MOCA and a 3.6 on the Syed. Difficult care situation at home prob needs higher level of care than fam can provide. family mtg held, LTC will be pursued. 01/18: calm, cooperative, pleasant. asking about discharge. informed her son and SW are working on it. continue current mgmt. 01/19/25: resting in bed after breakfast. Self report not sleeing well last night. Med compliant. No side effects. No med changes. Can be forgetful. She thinks she has is at [facility]- which could be her day program that she used to have activities at. 01/20/25: Knowing she is at the hospital, slept well and has no appetite issues. No side effect noted. Compliant with medications. No other safety concerns. Patient educated on: medication risk/benefits and therapeutic strategies Informed Consent: further education needed Reason for continued inpatient stay Substantial Risk for: med/psych decompensation Time Spent With Patient Time: Total time managing care of this patient today ____ minutes.
--- NOTE | 2025-01-20 13:56 | P.PNPSI_ITS ---
Subjective Subjective Reason For Visit: si Diagnostics Vital Signs (24Hr): Vital Signs - 24 hr 01/19/25 20:00 01/20/25 08:00 Temperature 97.9 F 97.9 F Pulse Rate 80 71 Respiratory Rate 16 16 Blood Pressure 142/65 H 120/57 L Pulse Oximetry 95 97 Oxygen Delivery Method Room Air Room Air BMI result Body Mass Index 26.3 Labs 01/07/25 16:30 01/09/25 07:17 Medications Medications Current Medications Acetaminophen (Acetaminophen 325 Mg Tablet) 650 mg PO Q6H PRN PRN Reason: Headache/Pain, Scale 1-10 Last Admin: 01/10/25 23:21 Dose: 650 mg Al Hydroxide/Mg Hydroxide (Magnesium Hydrox/Alum Hydrox 30 Ml Oral.Susp) 30 ml PO Q6H PRN PRN Reason: Heartburn/Nausea Albuterol Sulfate (Albuterol Sulfate 90 Mcg 8 Gm Inhaler) 2 puff INHALE Q6H PRN PRN Reason: Wheezing Amlodipine Besylate (Amlodipine Besylate 5 Mg Tablet) 5 mg PO DAILY [facility]; Protocol Last Admin: 01/20/25 08:43 Dose: 5 mg Atorvastatin Calcium (Atorvastatin Calcium 40 Mg Tablet) 40 mg PO BEDTIME [facility] Last Admin: 01/19/25 20:38 Dose: 40 mg Guaifenesin (Guaifenesin 200 Mg/10 Ml 10 Ml Liquid) 10 ml PO Q6H PRN PRN Reason: Cough Hydroxyzine HCl (Hydroxyzine Hcl 25 Mg Tablet) 25 mg PO Q6H PRN PRN Reason: Anxiety Last Admin: 01/19/25 20:37 Dose: 25 mg Magnesium Hydroxide (Milk Of Magnesia 30 Ml Oral.Susp) 30 ml PO DAILY PRN PRN Reason: Constipation Nicotine (Nicotine 7 Mg Patch.Td24) 7 mg TRANSDERMA DAILY [facility] Last Admin: 01/20/25 08:43 Dose: 7 mg Nicotine Polacrilex (Nicotine Polacrilex 2 Mg Gum) 2 mg BUCCAL Q2H PRN PRN Reason: Nicotine Cravings Pt Own (Umeclidinium -Vilanterol [Anoro Ellipta] 62.5-25 Mcg /Actuation Bl 1 each INHALE RDAILY [facility] Last Admin: 01/20/25 08:43 Dose: 1 each Quetiapine Fumarate (Quetiapine Fumarate 25 Mg Tablet) 25 mg PO Q6H PRN PRN Reason: agitation Quetiapine Fumarate (Quetiapine Fumarate 50 Mg Tablet) 150 mg PO BEDTIME [facility] Last Admin: 01/19/25 20:38 Dose: 150 mg Quetiapine Fumarate (Quetiapine Fumarate 25 Mg Tablet) 25 mg PO DAILY@1600 [facility] Last Admin: 01/19/25 16:13 Dose: 25 mg Allergies Allergies Allergy/AdvReac Type Severity Reaction Status Date / Time aspirin Allergy Unknown Verified 01/07/25 16:17 Assessment & Plan Assessment & Plan (1) COPD (chronic obstructive pulmonary disease): Status: Acute Code(s): J44.9 - Chronic obstructive pulmonary disease, unspecified (2) Alzheimer dementia: Status: Acute Code(s): G30.9 - Alzheimer's disease, unspecified; F02.80 - Dementia in other diseases classified elsewhere, unspecified severity, without behavioral disturbance, psychotic disturbance, mood disturbance, and anxiety (3) Agitation due to dementia: Status: Acute Code(s): F03.911 - Unspecified dementia, unspecified severity, with agitation Plan 01/15: calm, cooperative, pleasant in the morning. per staff, sundowning as of 4-5 pm. schedule seroquel 25 mg Q4pm. otherwise continue current mgmt. 01/16: Patient notes that she feels pretty good. She denies anxiety or depression. She denies SI/HI/AH/VH. Per nursing, she has been very confused. Continue current treatment regimen. 01/17: stable presentation. per OT: 01/07 on the MOCA and a 3.6 on the Syed. Difficult care situation at home prob needs higher level of care than [facility] can provide. family mtg held, LTC will be pursued. 01/18: calm, cooperative, pleasant. asking about discharge. informed her son and SW are working on it. continue current mgmt. 01/19/25: resting in bed after breakfast. Self report not sleeing well last night. Med compliant. No side effects. No med changes. Can be forgetful. She thinks she has is at [facility]- which could be her day program that she used to have activities at. 01/20/25: Time Spent With Patient Time: Total time managing care of this patient today ____ minutes.
[2025-01-20 20:00] VITALS: BP 132/68; PULSE 85; RESP 18; TEMP 36.2; O2SAT 96
[2025-01-21 08:00] VITALS: BP 129/62; PULSE 73; RESP 16; TEMP 36.8; O2SAT 97
[2025-01-21] MEDS: PT OWN (Umeclidinium-Vilanterol [Anoro Ellipta] 62.5-25 mcg/actuation bl 1 EACH INHALE (09:31)
[2025-01-21 09:32] VITALS: BP 129/62
[2025-01-21] MEDS: Nicotine 7 MG PATCH.TD24 TRANSDERMA (09:32)
[2025-01-21 19:58] VITALS: BP 173/67; PULSE 75; RESP 16; TEMP 36.2; O2SAT 99
--- NOTE | 2025-01-21 21:04 | P.PNPSI_ITS ---
Subjective Subjective Date of Service: 01/21/25 Reason For Visit: si Interim History: resting after lunch. calm, pleasant. no requests or complaints. per staff, stable, less reactive. pleasant. sleeping well. Mental Status Exam Mental Status Exam Narrative: adequately dressed and groomed. no PMA/PMR. cooperative. speech nml rate, amount, loudness, tone, latency. thoughts linear and logical in brief interaction. poverty of content. affect constricted, normo-intense, non- labile. mood euthymic. no SI/HI/AVH expressed. Diagnostics Vital Signs (24Hr): Vital Signs - 24 hr 01/21/25 08:00 01/21/25 09:32 01/21/25 19:58 Temperature 98.3 F 97.2 F Pulse Rate 73 75 Respiratory Rate 16 16 Blood Pressure 129/62 129/62 173/67 H Pulse Oximetry 97 99 Oxygen Delivery Method Room Air Room Air BMI result Body Mass Index 26.3 Labs 01/07/25 16:30 01/09/25 07:17 Medications Medications Current Medications Acetaminophen (Acetaminophen 325 Mg Tablet) 650 mg PO Q6H PRN PRN Reason: Headache/Pain, Scale 1-10 Last Admin: 01/10/25 23:21 Dose: 650 mg Al Hydroxide/Mg Hydroxide (Magnesium Hydrox/Alum Hydrox 30 Ml Oral.Susp) 30 ml PO Q6H PRN PRN Reason: Heartburn/Nausea Albuterol Sulfate (Albuterol Sulfate 90 Mcg 8 Gm Inhaler) 2 puff INHALE Q6H PRN PRN Reason: Wheezing Amlodipine Besylate (Amlodipine Besylate 5 Mg Tablet) 5 mg PO DAILY [facility]; Protocol Last Admin: 01/21/25 09:32 Dose: 5 mg Atorvastatin Calcium (Atorvastatin Calcium 40 Mg Tablet) 40 mg PO BEDTIME BUD Last Admin: 01/21/25 20:00 Dose: 40 mg Guaifenesin (Guaifenesin 200 Mg/10 Ml 10 Ml Liquid) 10 ml PO Q6H PRN PRN Reason: Cough Hydroxyzine HCl (Hydroxyzine Hcl 25 Mg Tablet) 25 mg PO Q6H PRN PRN Reason: Anxiety Last Admin: 01/19/25 20:37 Dose: 25 mg Magnesium Hydroxide (Milk Of Magnesia 30 Ml Oral.Susp) 30 ml PO DAILY PRN PRN Reason: Constipation Nicotine (Nicotine 7 Mg Patch.Td24) 7 mg TRANSDERMA DAILY [facility] Last Admin: 01/21/25 09:32 Dose: 7 mg Nicotine Polacrilex (Nicotine Polacrilex 2 Mg Gum) 2 mg BUCCAL Q2H PRN PRN Reason: Nicotine Cravings Pt Own (Umeclidinium -Vilanterol [Anoro Ellipta] 62.5-25 Mcg /Actuation Bl 1 each INHALE RDAILY [facility] Last Admin: 01/21/25 09:31 Dose: 1 each Quetiapine Fumarate (Quetiapine Fumarate 25 Mg Tablet) 25 mg PO Q6H PRN PRN Reason: agitation Quetiapine Fumarate (Quetiapine Fumarate 50 Mg Tablet) 150 mg PO BEDTIME [facility] Last Admin: 01/21/25 20:00 Dose: 150 mg Quetiapine Fumarate (Quetiapine Fumarate 25 Mg Tablet) 25 mg PO DAILY@1600 [facility] Last Admin: 01/21/25 15:19 Dose: 25 mg Allergies Allergies Allergy/AdvReac Type Severity Reaction Status Date / Time aspirin Allergy Unknown Verified 01/07/25 16:17 Assessment & Plan Assessment & Plan (1) COPD (chronic obstructive pulmonary disease): Status: Acute Code(s): J44.9 - Chronic obstructive pulmonary disease, unspecified (2) Alzheimer dementia: Status: Acute Code(s): G30.9 - Alzheimer's disease, unspecified; F02.80 - Dementia in other diseases classified elsewhere, unspecified severity, without behavioral disturbance, psychotic disturbance, mood disturbance, and anxiety (3) Agitation due to dementia: Status: Acute Code(s): F03.911 - Unspecified dementia, unspecified severity, with agitation Plan 01/15: calm, cooperative, pleasant in the morning. per staff, sundown as of 4-5 pm. schedule seroquel 25 mg Q4pm. otherwise continue current mgmt. 01/16: Patient notes that she feels pretty good. She denies anxiety or depression. She denies SI/HI/AH/VH. Per nursing, she has been very confused. Continue current treatment regimen. 01/17: stable presentation. per OT: 01/07 on the MOCA and a 3.6 on the Syed. Difficult care situation at home prob needs higher level of care than fam can provide. family mtg held, LTC will be pursued. 01/18: calm, cooperative, pleasant. asking about discharge. informed her son and SW are working on it. continue current mgmt. 01/19/25: resting in bed after breakfast. Self report not sleeing well last night. Med compliant. No side effects. No med changes. Can be forgetful. She thinks she has is at [facility]- which could be her day program that she used to have activities at. 01/20/25: Knowing she is at the hospital, slept well and has no appetite issues. No side effect noted. Compliant with medications. No other safety concerns. 01/21: no questions or complaints. no behavioral episodes of concern. continue current mgmt. Reason for continued inpatient stay Substantial Risk for: inability to function and rapid decompensation Time Spent With Patient Time: Total time managing care of this patient today ____ minutes.
[2025-01-22 08:00] VITALS: BP 142/67; PULSE 68; RESP 18; TEMP 36.2; O2SAT 97
[2025-01-22] MEDS: Nicotine 7 MG PATCH.TD24 TRANSDERMA (08:04)
[2025-01-22] MEDS: PT OWN (Umeclidinium-Vilanterol [Anoro Ellipta] 62.5-25 mcg/actuation bl 1 EACH INHALE (08:15)
--- NOTE | 2025-01-22 13:12 | P.PNPSI_ITS ---
Subjective Subjective Date of Service: 01/22/25 Reason For Visit: si Interim History: resting in bed after lunch. pleasant. no questions or complaints. i'm fine, thank you. Mental Status Exam Mental Status Exam Narrative: adequately dressed and groomed. no PMA/PMR. cooperative. speech nml rate, amount, loudness, tone, latency. thoughts linear and logical in brief interaction. poverty of content. affect constricted, normo-intense, non- labile. mood euthymic. no SI/HI/AVH expressed. Diagnostics Vital Signs (24Hr): Vital Signs - 24 hr 01/21/25 19:58 01/22/25 08:00 Temperature 97.2 F 97.2 F Pulse Rate 75 68 Respiratory Rate 16 18 Blood Pressure 173/67 H 142/67 H Pulse Oximetry 99 97 Oxygen Delivery Method Room Air Room Air BMI result Body Mass Index 26.3 Labs 01/07/25 16:30 01/09/25 07:17 Medications Medications Current Medications Acetaminophen (Acetaminophen 325 Mg Tablet) 650 mg PO Q6H PRN PRN Reason: Headache/Pain, Scale 1-10 Last Admin: 01/10/25 23:21 Dose: 650 mg Al Hydroxide/Mg Hydroxide (Magnesium Hydrox/Alum Hydrox 30 Ml Oral.Susp) 30 ml PO Q6H PRN PRN Reason: Heartburn/Nausea Albuterol Sulfate (Albuterol Sulfate 90 Mcg 8 Gm Inhaler) 2 puff INHALE Q6H PRN PRN Reason: Wheezing Amlodipine Besylate (Amlodipine Besylate 5 Mg Tablet) 5 mg PO DAILY [facility]; Protocol Last Admin: 01/22/25 08:04 Dose: 5 mg Atorvastatin Calcium (Atorvastatin Calcium 40 Mg Tablet) 40 mg PO BEDTIME [facility] Last Admin: 01/21/25 20:00 Dose: 40 mg Guaifenesin (Guaifenesin 200 Mg/10 Ml 10 Ml Liquid) 10 ml PO Q6H PRN PRN Reason: Cough Hydroxyzine HCl (Hydroxyzine Hcl 25 Mg Tablet) 25 mg PO Q6H PRN PRN Reason: Anxiety Last Admin: 01/19/25 20:37 Dose: 25 mg Magnesium Hydroxide (Milk Of Magnesia 30 Ml Oral.Susp) 30 ml PO DAILY PRN PRN Reason: Constipation Nicotine (Nicotine 7 Mg Patch.Td24) 7 mg TRANSDERMA DAILY [facility] Last Admin: 01/22/25 08:04 Dose: 7 mg Nicotine Polacrilex (Nicotine Polacrilex 2 Mg Gum) 2 mg BUCCAL Q2H PRN PRN Reason: Nicotine Cravings Pt Own (Umeclidinium -Vilanterol [Anoro Ellipta] 62.5-25 Mcg /Actuation Bl 1 each INHALE RDAILY [facility] Last Admin: 01/22/25 08:15 Dose: 1 each Quetiapine Fumarate (Quetiapine Fumarate 25 Mg Tablet) 25 mg PO Q6H PRN PRN Reason: agitation Quetiapine Fumarate (Quetiapine Fumarate 50 Mg Tablet) 150 mg PO BEDTIME [facility] Last Admin: 01/21/25 20:00 Dose: 150 mg Quetiapine Fumarate (Quetiapine Fumarate 25 Mg Tablet) 25 mg PO DAILY@1600 [facility] Last Admin: 01/21/25 15:19 Dose: 25 mg Allergies Allergies Allergy/AdvReac Type Severity Reaction Status Date / Time aspirin Allergy Unknown Verified 01/07/25 16:17 Assessment & Plan Assessment & Plan (1) COPD (chronic obstructive pulmonary disease): Status: Acute Code(s): J44.9 - Chronic obstructive pulmonary disease, unspecified (2) Alzheimer dementia: Status: Acute Code(s): G30.9 - Alzheimer's disease, unspecified; F02.80 - Dementia in other diseases classified elsewhere, unspecified severity, without behavioral disturbance, psychotic disturbance, mood disturbance, and anxiety (3) Agitation due to dementia: Status: Acute Code(s): F03.911 - Unspecified dementia, unspecified severity, with agitation Plan 01/15: calm, cooperative, pleasant in the morning. per staff, as of 4-5 pm. schedule seroquel 25 mg Q4pm. otherwise continue current mgmt. 01/16: Patient notes that she feels pretty good. She denies anxiety or depression. She denies SI/HI/AH/VH. Per nursing, she has been very confused. Continue current treatment regimen. 01/17: stable presentation. per OT: 01/07 on the MOCA and a 3.6 on the Syed. Difficult care situation at home prob needs higher level of care than fam can provide. family mtg held, LTC will be pursued. 01/18: calm, cooperative, pleasant. asking about discharge. informed her son and SW are working on it. continue current mgmt. 01/19/25: resting in bed after breakfast. Self report not sleeing well last night. Med compliant. No side effects. No med changes. Can be forgetful. She thinks she has is at [facility]- which could be her day program that she used to have activities at. 01/20/25: Knowing she is at the hospital, slept well and has no appetite issues. No side effect noted. Compliant with medications. No other safety concerns. 01/21: no questions or complaints. no behavioral episodes of concern. continue current mgmt. Reason for continued inpatient stay Substantial Risk for: inability to function Time Spent With Patient Time: Total time managing care of this patient today ____ minutes.
[2025-01-22 19:37] VITALS: BP 141/69; PULSE 85; RESP 16; TEMP 37; O2SAT 98
[2025-01-23 08:00] VITALS: BP 117/58; PULSE 86; RESP 16; TEMP 36.6; O2SAT 96
[2025-01-23] MEDS: PT OWN (Umeclidinium-Vilanterol [Anoro Ellipta] 62.5-25 mcg/actuation bl 1 EACH INHALE (08:19)
[2025-01-23] MEDS: Nicotine 7 MG PATCH.TD24 TRANSDERMA (08:20)
--- NOTE | 2025-01-23 10:42 | P.CONHOSP_ITS ---
History of Present Illness Data of Consult Service Date: 01/23/25 Primary Care Provider: Unknown Physician HPI Reason for consult: Cough, adventitious lung sounds 79-year-old female with a past medical history of Alzheimer's dementia, hypertension and hyperlipidemia and COPD, + smoker. She presented to the ED with agitation and physical aggression. She is admitted to the geripsych unit for stabilization. She was seen for cough and adventitious LS. On exam she is alert, appropriately dressed. In no apparent distress. She denies any shortness of breath or chest pain. She denies any medical concerns. Her blood pressure has been stable. No cough, rales or wheezing. Her respiratory rate is even and regular. She is afebrile, no tachycardia. She denies any history of allergy symptoms, denies any sore throat or nasal congestion denies any headaches. Review of Systems 2 Review of Systems: Denies any shortness of breath, chest pain, dizziness, lightheadedness, abdominal pain or discomfort, nausea vomiting or diarrhea PMFSH Social History Household Members: Children Housing: Apartment Do you presently have visiting nurse or other home services: No Patient Tobacco Use Status: Current everyday Tobacco user Tobacco use type: Cigarette Cigarettes Per Day: 4 Years Smoked: 2 Smoked in Last 30 Days: Yes Patient Interested in Nicotine Replacement: Yes Patient Given Instructions on How to Stop Smoking: Yes Date Education Initiated: 01/08/25 Second Hand Smoke Exposure: No Currently Displaying Signs/Symptoms of Drug Intoxication Withdrawal: No Have you been hit, kicked, punched, or otherwise hurt by someone within the past year? If so, by whom?: No Do you feel safe in your current relationship?: No Current Relationship Is there a partner from a previous relationship who is making you feel unsafe now?: No Are you made to feel afraid or neglected: No Spiritual Healthcare Practices: none L[employer] Day Healthcare Practices: L[employer] Day Cultural Healthcare Practices: none Advance Directives: No (Unknown) Advance Directives Information Provided: Yes Do you have thoughts of harming others: None Do you have a plan to hurt others: No Plan Recently lost weight without trying: No How much weight loss: Not applicable Eating poorly because of decreased appetite: No Nutrition screen score: 0 Nutrition Risks: No Nutritional Risk Patient : No : No Poor oral hygiene: No service: No Sexual orientation: Straight/Heterosexual Meds Allergies Allergy/AdvReac Type Severity Reaction Status Date / Time aspirin Allergy Unknown Verified 01/07/25 16:17 Active Medications: Current Medications Acetaminophen (Acetaminophen 325 Mg Tablet) 650 mg PO Q6H PRN PRN Reason: Headache/Pain, Scale 1-10 Last Admin: 01/10/25 23:21 Dose: 650 mg Al Hydroxide/Mg Hydroxide (Magnesium Hydrox/Alum Hydrox 30 Ml Oral.Susp) 30 ml PO Q6H PRN PRN Reason: Heartburn/Nausea Albuterol Sulfate (Albuterol Sulfate 90 Mcg 8 Gm Inhaler) 2 puff INHALE Q6H PRN PRN Reason: Wheezing Amlodipine Besylate (Amlodipine Besylate 5 Mg Tablet) 5 mg PO DAILY [facility]; Protocol Last Admin: 01/23/25 08:21 Dose: 5 mg Atorvastatin Calcium (Atorvastatin Calcium 40 Mg Tablet) 40 mg PO BEDTIME [facility] Last Admin: 01/22/25 19:36 Dose: 40 mg Guaifenesin (Guaifenesin 200 Mg/10 Ml 10 Ml Liquid) 10 ml PO Q6H PRN PRN Reason: Cough Hydroxyzine HCl (Hydroxyzine Hcl 25 Mg Tablet) 25 mg PO Q6H PRN PRN Reason: Anxiety Last Admin: 01/19/25 20:37 Dose: 25 mg Magnesium Hydroxide (Milk Of Magnesia 30 Ml Oral.Susp) 30 ml PO DAILY PRN PRN Reason: Constipation Nicotine (Nicotine 7 Mg Patch.Td24) 7 mg TRANSDERMA DAILY [facility] Last Admin: 01/23/25 08:20 Dose: 7 mg Nicotine Polacrilex (Nicotine Polacrilex 2 Mg Gum) 2 mg BUCCAL Q2H PRN PRN Reason: Nicotine Cravings Pt Own (Umeclidinium -Vilanterol [Anoro Ellipta] 62.5-25 Mcg /Actuation Bl 1 each INHALE RDAILY [facility] Last Admin: 01/23/25 08:19 Dose: 1 each Quetiapine Fumarate (Quetiapine Fumarate 25 Mg Tablet) 25 mg PO Q6H PRN PRN Reason: agitation Quetiapine Fumarate (Quetiapine Fumarate 50 Mg Tablet) 150 mg PO BEDTIME [facility] Last Admin: 01/22/25 19:35 Dose: 150 mg Quetiapine Fumarate (Quetiapine Fumarate 25 Mg Tablet) 25 mg PO DAILY@1600 [facility] Last Admin: 01/22/25 15:29 Dose: 25 mg Home Medications ?Medication ?Instructions ?Recorded ?Confirmed ?Last Taken ?Type albuterol sulfate 90 mcg/actuation 2 puff inhalation Q 6H PRN wheezing 01/07/25 01/07/25 Unknown History aerosol inhaler amlodipine 5 mg tablet 5 mg PO DAILY 01/07/2501/0701/07/25 07:00 History melatonin 5 mg tablet 5 mg PO BEDTIME 01/07/2501/06/25 19:00 History quetiapine 100 mg tablet 100 mg PO BEDTIME 01/07/25 0 01/07/25 01/06/25 19:00 History rosuvastatin 10 mg tablet 10 mg PO BEDTIME 01/07/2501/06/25 19:00 History umeclidinium 62.5 mcg-vilanterol 1 ea inhalation DAILY 01/07/25 01/07/25 01/07/25 07:00 History 25 mcg/actuation powdr for inhalation (Anoro Ellipta) Physical Exam 2 Vital Signs and Narrative: Vital Signs: Last Vital Signs Temp 98.6 F 01/22/25 19:37 Pulse 85 01/22/25 19:37 Resp 16 01/22/25 19:37 BP 141/69 H 01/22/25 19:37 Pulse Ox 98 01/22/25 19:37 O2 Del Method Room Air 01/22/25 19:37 BMI result Body Mass Index 26.3 CONST: Alert and oriented, in NAD. Well nourished HEENT: Normocephalic, atraumatic, MMM, Eyes clear, Neck supple RESP: Lungs clear, RRR even and regular HEART:,RRR, S1, S2. No murmur, no edema GI:Abdomen Soft NT, ND. + BS times four :Deferred SKIN: Warm dry and intact, no visible lesions or rashes NEURO:CN II-XII Intact bilaterally, Sensation intact. Speech clear PSYCH: Normal affect Results Labs 01/07/25 16:30 01/09/25 07:17 Assessment and Plan (1) COPD (chronic obstructive pulmonary disease): Status: Acute (2) Cough: Status: Acute Plan Dementia with agitation Treatment per psychiatric team COPD/tobacco misuse Continue nicotine patches, continue to encourage smoking cessation Continue Anoro Ellipta and albuterol as needed Not in acute exacerbation on exam, continue to monitor for changes. Hypertension/hyperlipidemia Continue amlodipine and atorvastatin. Blood pressure in acceptable range Thank you for allowing me to participate in the care of this patient. Will follow as needed. Please reconsult of any acute concerns or issues arise
[2025-01-23] MEDS: Albuterol Sulfate 90 MCG 8 GM INHALER 2 PUFF INHALE (10:57)
--- NOTE | 2025-01-23 13:56 | HO.PSYCHPN ---
Subjective Subjective Date of Service: 01/23/25 Reason For Visit: si Interim History: start donepezil for AD. no questions or concerns. denies any pulmonary Sx. per staff, RN reporting crackles in her bases along with diminished breath sounds RAYRAY. Mental Status Exam Mental Status Exam Narrative: adequately dressed and groomed. no PMA/PMR. cooperative. speech nml rate, amount, loudness, tone, latency. thoughts linear and logical in brief interaction. poverty of content. affect constricted, normo-intense, non-labile. mood euthymic. no SI/HI/AVH expressed. Diagnostics Vital Signs (24Hr): Vital Signs - 24 hr 01/22/25 19:37 01/23/25 08:00 Temperature 98.6 F 97.9 F Pulse Rate 85 86 Respiratory Rate 16 16 Blood Pressure 141/69 H 117/58 L Pulse Oximetry 98 96 Oxygen Delivery Method Room Air Room Air BMI result Body Mass Index 26.3 Labs 01/07/25 16:30 01/09/25 07:17 Medications Medications Current Medications Acetaminophen (Acetaminophen 325 Mg Tablet) 650 mg PO Q6H PRN PRN Reason: Headache/Pain, Scale 1-10 Last Admin: 01/10/25 23:21 Dose: 650 mg Al Hydroxide/Mg Hydroxide (Magnesium Hydrox/Alum Hydrox 30 Ml Oral.Susp) 30 ml PO Q6H PRN PRN Reason: Heartburn/Nausea Albuterol Sulfate (Albuterol Sulfate 90 Mcg 8 Gm Inhaler) 2 puff INHALE Q6H PRN PRN Reason: Wheezing Last Admin: 01/23/25 10:57 Dose: 2 puff Amlodipine Besylate (Amlodipine Besylate 5 Mg Tablet) 5 mg PO DAILY [facility]; Protocol Last Admin: 01/23/25 08:21 Dose: 5 mg Atorvastatin Calcium (Atorvastatin Calcium 40 Mg Tablet) 40 mg PO BEDTIME [facility] Last Admin: 01/22/25 19:36 Dose: 40 mg Donepezil HCl (Donepezil Hcl 5 Mg Tablet) 5 mg PO DAILY [facility] Last Admin: 01/23/25 12:30 Dose: 5 mg Guaifenesin (Guaifenesin 200 Mg/10 Ml 10 Ml Liquid) 10 ml PO Q6H PRN PRN Reason: Cough Hydroxyzine HCl (Hydroxyzine Hcl 25 Mg Tablet) 25 mg PO Q6H PRN PRN Reason: Anxiety Last Admin: 01/19/25 20:37 Dose: 25 mg Magnesium Hydroxide (Milk Of Magnesia 30 Ml Oral.Susp) 30 ml PO DAILY PRN PRN Reason: Constipation Nicotine (Nicotine 7 Mg Patch.Td24) 7 mg TRANSDERMA DAILY [facility] Last Admin: 01/23/25 08:20 Dose: 7 mg Nicotine Polacrilex (Nicotine Polacrilex 2 Mg Gum) 2 mg BUCCAL Q2H PRN PRN Reason: Nicotine Cravings Pt Own (Umeclidinium -Vilanterol [Anoro Ellipta] 62.5-25 Mcg /Actuation Bl 1 each INHALE RDAILY [facility] Last Admin: 01/23/25 08:19 Dose: 1 each Quetiapine Fumarate (Quetiapine Fumarate 25 Mg Tablet) 25 mg PO Q6H PRN PRN Reason: agitation Quetiapine Fumarate (Quetiapine Fumarate 50 Mg Tablet) 150 mg PO BEDTIME [facility] Last Admin: 01/22/25 19:35 Dose: 150 mg Quetiapine Fumarate (Quetiapine Fumarate 25 Mg Tablet) 25 mg PO DAILY@1600 [facility] Last Admin: 01/22/25 15:29 Dose: 25 mg Allergies Allergies Allergy/AdvReac Type Severity Reaction Status Date / Time aspirin Allergy Unknown Verified 01/07/25 16:17 Assessment & Plan Assessment & Plan (1) COPD (chronic obstructive pulmonary disease): Status: Acute Code(s): J44.9 - Chronic obstructive pulmonary disease, unspecified (2) Alzheimer dementia: Status: Acute Code(s): G30.9 - Alzheimer's disease, unspecified; F02.80 - Dementia in other diseases classified elsewhere, unspecified severity, without behavioral disturbance, psychotic disturbance, mood disturbance, and anxiety (3) Agitation due to dementia: Status: Acute Code(s): F03.911 - Unspecified dementia, unspecified severity, with agitation Plan 01/15: calm, cooperative, pleasant in the morning. per staff, sundowning as of 4-5 pm. schedule seroquel 25 mg Q4pm. otherwise continue current mgmt. 01/16: Patient notes that she feels pretty good. She denies anxiety or depression. She denies SI/HI/AH/VH. Per nursing, she has been very confused. Continue current treatment regimen. 01/17: stable presentation. per OT: 01/07 on the MOCA and a 3.6 on the Syed. Difficult care situation at home prob needs higher level of care than fam can provide. family mtg held, LTC will be pursued. 01/18: calm, cooperative, pleasant. asking about discharge. informed her son and SW are working on it. continue current mgmt. 01/19/25: resting in bed after breakfast. Self report not sleeing well last night. Med compliant. No side effects. No med changes. Can be forgetful. She thinks she has is at [facility]- which could be her day program that she used to have activities at. 01/20/25: Knowing she is at the hospital, slept well and has no appetite issues. No side effect noted. Compliant with medications. No other safety concerns. 01/21: no questions or complaints. no behavioral episodes of concern. continue current mgmt. 01/23: start donepezil for AD. med consult for RN's pulmonary findings. otherwise continue current mgmt. Reason for continued inpatient stay Substantial Risk for: inability to function Time Spent With Patient Time: Total time managing care of this patient today ____ minutes.
[2025-01-23 21:45] VITALS: BP 143/75; PULSE 82; RESP 14; TEMP 36.1; O2SAT 98
[2025-01-24 06:58] VITALS: BMI 26.5
[2025-01-24 07:55] VITALS: BP 114/80; PULSE 75; RESP 18; TEMP 36.6; O2SAT 98
[2025-01-24] MEDS: Nicotine 7 MG PATCH.TD24 TRANSDERMA (08:37)
[2025-01-24] MEDS: PT OWN (Umeclidinium-Vilanterol [Anoro Ellipta] 62.5-25 mcg/actuation bl 1 EACH INHALE (08:37)
--- NOTE | 2025-01-24 14:02 | P.PNPSI_ITS ---
Subjective Subjective Date of Service: 01/24/25 Reason For Visit: si Interim History: lying in bed after lunch, as per usual. calm, cooperative, pleasant. no requests or complaints. Mental Status Exam Mental Status Exam Narrative: adequately dressed and groomed. no PMA/PMR. cooperative. speech nml rate, amount, loudness, tone, latency. thoughts linear and logical in brief interaction. poverty of content. affect constricted, normo-intense, non- labile. mood euthymic. no SI/HI/AVH expressed. Diagnostics Vital Signs (24Hr): Vital Signs - 24 hr 01/23/25 21:45 01/24/25 07:55 Temperature 97 F 97.9 F Pulse Rate 82 75 Respiratory Rate 14 18 Blood Pressure 143/75 H 114/80 Pulse Oximetry 98 98 Oxygen Delivery Method Room Air Room Air BMI result Body Mass Index 26.5 Labs 01/07/25 16:30 01/09/25 07:17 Medications Medications Current Medications Acetaminophen (Acetaminophen 325 Mg Tablet) 650 mg PO Q6H PRN PRN Reason: Headache/Pain, Scale 1-10 Last Admin: 01/10/25 23:21 Dose: 650 mg Al Hydroxide/Mg Hydroxide (Magnesium Hydrox/Alum Hydrox 30 Ml Oral.Susp) 30 ml PO Q6H PRN PRN Reason: Heartburn/Nausea Albuterol Sulfate (Albuterol Sulfate 90 Mcg 8 Gm Inhaler) 2 puff INHALE Q6H PRN PRN Reason: Wheezing Last Admin: 01/23/25 10:57 Dose: 2 puff Amlodipine Besylate (Amlodipine Besylate 5 Mg Tablet) 5 mg PO DAILY [facility]; Protocol Last Admin: 01/24/25 08:37 Dose: 5 mg Atorvastatin Calcium (Atorvastatin Calcium 40 Mg Tablet) 40 mg PO BEDTIME BUD Last Admin: 01/23/25 19:38 Dose: 40 mg Donepezil HCl (Donepezil Hcl 5 Mg Tablet) 5 mg PO DAILY [facility] Last Admin: 01/24/25 08:37 Dose: 5 mg Guaifenesin (Guaifenesin 200 Mg/10 Ml 10 Ml Liquid) 10 ml PO Q6H PRN PRN Reason: Cough Hydroxyzine HCl (Hydroxyzine Hcl 25 Mg Tablet) 25 mg PO Q6H PRN PRN Reason: Anxiety Last Admin: 01/19/25 20:37 Dose: 25 mg Magnesium Hydroxide (Milk Of Magnesia 30 Ml Oral.Susp) 30 ml PO DAILY PRN PRN Reason: Constipation Nicotine (Nicotine 7 Mg Patch.Td24) 7 mg TRANSDERMA DAILY [facility] Last Admin: 01/24/25 08:37 Dose: 7 mg Nicotine Polacrilex (Nicotine Polacrilex 2 Mg Gum) 2 mg BUCCAL Q2H PRN PRN Reason: Nicotine Cravings Pt Own (Umeclidinium -Vilanterol [Anoro Ellipta] 62.5-25 Mcg /Actuation Bl 1 each INHALE RDAILY [facility] Last Admin: 01/24/25 08:37 Dose: 1 each Quetiapine Fumarate (Quetiapine Fumarate 25 Mg Tablet) 25 mg PO Q6H PRN PRN Reason: agitation Quetiapine Fumarate (Quetiapine Fumarate 50 Mg Tablet) 150 mg PO BEDTIME [facility] Last Admin: 01/23/25 19:38 Dose: 150 mg Quetiapine Fumarate (Quetiapine Fumarate 25 Mg Tablet) 25 mg PO DAILY@1600 [facility] Last Admin: 01/23/25 16:37 Dose: 25 mg Allergies Allergies Allergy/AdvReac Type Severity Reaction Status Date / Time aspirin Allergy Unknown Verified 01/07/25 16:17 Assessment & Plan Assessment & Plan (1) COPD (chronic obstructive pulmonary disease): Status: Acute Code(s): J44.9 - Chronic obstructive pulmonary disease, unspecified Assessment and Plan: Dementia with agitation Treatment per psychiatric team COPD/tobacco misuse Continue nicotine patches, continue to encourage smoking cessation Continue Anoro Ellipta and albuterol as needed Not in acute exacerbation on exam, continue to monitor for changes. Hypertension/hyperlipidemia Continue amlodipine and atorvastatin. Blood pressure in acceptable range (2) Cough: Status: Acute Code(s): R05.9 - Cough, unspecified (3) Alzheimer dementia: Status: Acute Code(s): G30.9 - Alzheimer's disease, unspecified; F02.80 - Dementia in other diseases classified elsewhere, unspecified severity, without behavioral disturbance, psychotic disturbance, mood disturbance, and anxiety (4) Agitation due to dementia: Status: Acute Code(s): F03.911 - Unspecified dementia, unspecified severity, with agitation Plan 01/15: calm, cooperative, pleasant in the morning. per staff, sundowning as of 4-5 pm. schedule seroquel 25 mg Q4pm. otherwise continue current mgmt. 01/16: Patient notes that she feels pretty good. She denies anxiety or depression. She denies SI/HI/AH/VH. Per nursing, she has been very confused. Continue current treatment regimen. 01/17: stable presentation. per OT: 01/07 on the MOCA and a 3.6 on the Syed. Difficult care situation at home prob needs higher level of care than fam can provide. family mtg held, LTC will be pursued. 01/18: calm, cooperative, pleasant. asking about discharge. informed her son and SW are working on it. continue current mgmt. 01/19/25: resting in bed after breakfast. Self report not sleeing well last night. Med compliant. No side effects. No med changes. Can be forgetful. She thinks she has is at [facility]- which could be her day program that she used to have activities at. 01/20/25: Knowing she is at the hospital, slept well and has no appetite issues. No side effect noted. Compliant with medications. No other safety concerns. 01/21: no questions or complaints. no behavioral episodes of concern. continue current mgmt. 01/23: start donepezil for AD. med consult for RN's pulmonary findings. otherwise continue current mgmt. 01/24: no change in presentation. continue current mgmt. noted med changes per hospitalist consult. Reason for continued inpatient stay Substantial Risk for: inability to function Time Spent With Patient Time: Total time managing care of this patient today ____ minutes.
[2025-01-24 20:45] VITALS: BP 163/70; PULSE 75; RESP 18; TEMP 36.9; O2SAT 97
[2025-01-25 08:37] VITALS: BP 147/64; PULSE 81; RESP 17; TEMP 36.4; O2SAT 99
[2025-01-25] MEDS: PT OWN (Umeclidinium-Vilanterol [Anoro Ellipta] 62.5-25 mcg/actuation bl 1 EACH INHALE (08:41)
--- NOTE | 2025-01-25 12:36 | P.PNPSI_ITS ---
Subjective Subjective Date of Service: 01/25/25 Reason For Visit: si Interim History: stable, no complaints or requests. asking when she will be discharged only. Mental Status Exam Mental Status Exam Narrative: adequately dressed and groomed. no PMA/PMR. cooperative. speech nml rate, amount, loudness, tone, latency. thoughts linear and logical in brief interaction. poverty of content. affect constricted, normo-intense, non- labile. mood euthymic. no SI/HI/AVH expressed. Diagnostics Vital Signs (24Hr): Vital Signs - 24 hr 01/24/25 20:45 01/25/25 08:37 Temperature 98.4 F 97.5 F Pulse Rate 75 81 Respiratory Rate 18 17 Blood Pressure 163/70 H 147/64 H Pulse Oximetry 97 99 Oxygen Delivery Method Room Air Room Air BMI result Body Mass Index 26.5 Labs 01/07/25 16:30 01/09/25 07:17 Medications Medications Current Medications Acetaminophen (Acetaminophen 325 Mg Tablet) 650 mg PO Q6H PRN PRN Reason: Headache/Pain, Scale 1-10 Last Admin: 01/10/25 23:21 Dose: 650 mg Al Hydroxide/Mg Hydroxide (Magnesium Hydrox/Alum Hydrox 30 Ml Oral.Susp) 30 ml PO Q6H PRN PRN Reason: Heartburn/Nausea Albuterol Sulfate (Albuterol Sulfate 90 Mcg 8 Gm Inhaler) 2 puff INHALE Q6H PRN PRN Reason: Wheezing Last Admin: 01/23/25 10:57 Dose: 2 puff Amlodipine Besylate (Amlodipine Besylate 5 Mg Tablet) 5 mg PO DAILY [facility]; Protocol Last Admin: 01/25/25 08:39 Dose: 5 mg Atorvastatin Calcium (Atorvastatin Calcium 40 Mg Tablet) 40 mg PO BEDTIME BUD Last Admin: 01/24/25 19:32 Dose: 40 mg Donepezil HCl (Donepezil Hcl 5 Mg Tablet) 5 mg PO DAILY [facility] Last Admin: 01/25/25 08:39 Dose: 5 mg Guaifenesin (Guaifenesin 200 Mg/10 Ml 10 Ml Liquid) 10 ml PO Q6H PRN PRN Reason: Cough Hydroxyzine HCl (Hydroxyzine Hcl 25 Mg Tablet) 25 mg PO Q6H PRN PRN Reason: Anxiety Last Admin: 01/19/25 20:37 Dose: 25 mg Magnesium Hydroxide (Milk Of Magnesia 30 Ml Oral.Susp) 30 ml PO DAILY PRN PRN Reason: Constipation Nicotine (Nicotine 7 Mg Patch.Td24) 7 mg TRANSDERMA DAILY [facility] Last Admin: 01/25/25 08:40 Dose: Not Given Nicotine Polacrilex (Nicotine Polacrilex 2 Mg Gum) 2 mg BUCCAL Q2H PRN PRN Reason: Nicotine Cravings Pt Own (Umeclidinium -Vilanterol [Anoro Ellipta] 62.5-25 Mcg /Actuation Bl 1 each INHALE RDAILY [facility] Last Admin: 01/25/25 08:41 Dose: 1 each Quetiapine Fumarate (Quetiapine Fumarate 25 Mg Tablet) 25 mg PO Q6H PRN PRN Reason: agitation Quetiapine Fumarate (Quetiapine Fumarate 50 Mg Tablet) 150 mg PO BEDTIME [facility] Last Admin: 01/24/25 19:32 Dose: 150 mg Quetiapine Fumarate (Quetiapine Fumarate 25 Mg Tablet) 25 mg PO DAILY@1600 [facility] Last Admin: 01/24/25 16:53 Dose: 25 mg Allergies Allergies Allergy/AdvReac Type Severity Reaction Status Date / Time aspirin Allergy Unknown Verified 01/07/25 16:17 Assessment & Plan Assessment & Plan (1) COPD (chronic obstructive pulmonary disease): Status: Acute Code(s): J44.9 - Chronic obstructive pulmonary disease, unspecified Assessment and Plan: Dementia with agitation Treatment per psychiatric team COPD/tobacco misuse Continue nicotine patches, continue to encourage smoking cessation Continue Anoro Ellipta and albuterol as needed Not in acute exacerbation on exam, continue to monitor for changes. Hypertension/hyperlipidemia Continue amlodipine and atorvastatin. Blood pressure in acceptable range (2) Cough: Status: Acute Code(s): R05.9 - Cough, unspecified (3) Alzheimer dementia: Status: Acute Code(s): G30.9 - Alzheimer's disease, unspecified; F02.80 - Dementia in other diseases classified elsewhere, unspecified severity, without behavioral disturbance, psychotic disturbance, mood disturbance, and anxiety (4) Agitation due to dementia: Status: Acute Code(s): F03.911 - Unspecified dementia, unspecified severity, with agitation Plan 01/15: calm, cooperative, pleasant in the morning. per staff, as of 4-5 pm. schedule seroquel 25 mg Q4pm. otherwise continue current mgmt. 01/16: Patient notes that she feels pretty good. She denies anxiety or depression. She denies SI/HI/AH/VH. Per nursing, she has been very confused. Continue current treatment regimen. 01/17: stable presentation. per OT: 01/07 on the MOCA and a 3.6 on the Syed. Difficult care situation at home prob needs higher level of care than fam can provide. family mtg held, LTC will be pursued. 01/18: calm, cooperative, pleasant. asking about discharge. informed her son and SW are working on it. continue current mgmt. 01/19/25: resting in bed after breakfast. Self report not sleeing well last night. Med compliant. No side effects. No med changes. Can be forgetful. She thinks she has is at [facility]- which could be her day program that she used to have activities at. 01/20/25: Knowing she is at the hospital, slept well and has no appetite issues. No side effect noted. Compliant with medications. No other safety concerns. 01/21: no questions or complaints. no behavioral episodes of concern. continue current mgmt. 01/23: start donepezil for AD. med consult for RN's pulmonary findings. otherwise continue current mgmt. 01/24: no change in presentation. continue current mgmt. noted med changes per hospitalist consult. 01/25: stable presentation. asking when she will be discharged, otherwise no complaints or requests. continue current mgmt. Reason for continued inpatient stay Substantial Risk for: inability to function Time Spent With Patient Time: Total time managing care of this patient today ____ minutes.
[2025-01-25 20:00] VITALS: BP 153/70; PULSE 72; RESP 16; TEMP 36.8; O2SAT 97
[2025-01-26 07:53] VITALS: BP 150/70; PULSE 71; RESP 17; TEMP 37.2; O2SAT 96
[2025-01-26 08:07] VITALS: BP 150/70
[2025-01-26] MEDS: PT OWN (Umeclidinium-Vilanterol [Anoro Ellipta] 62.5-25 mcg/actuation bl 1 EACH INHALE (08:07)
--- NOTE | 2025-01-26 18:35 | P.PNPSI_ITS ---
Subjective Subjective Date of Service: 01/26/25 Reason For Visit: si Interim History: Patient remains in adequate behavioral control overall today. Pleasant on interaction. Denies concerns. Poverty of thought content noted. Medication Compliance: Yes Side effects from medications: No Attending Groups: Intermittent Review of Systems Acute medical concerns: No Medical Review of Systems: unchanged Mental Status Exam Mental Status Exam Narrative: Appearance: hospital attire, adequate grooming and hygiene Behavior: cooperative with encounter Orientation: alert, grossly oriented Memory: grossly intact to events today Attention: able to attend to a brief encounter Psychomotor Function: slowing Speech: normal rate, tone, volume Mood: okay Affect: appropriate to context Thought Process: coherent Thought Content: denies SI/HI; poverty of spontaneous material Hallucinations: denies AVH delusions: none evinced Insight: mild impairment Judgment: mild impairment Impulsivity: none noted Diagnostics Vital Signs (24Hr): Vital Signs - 24 hr 01/25/25 20:00 01/26/25 07:53 01/26/25 08:07 Temperature 98.2 F 99.0 F Pulse Rate 72 71 Respiratory Rate 16 17 Blood Pressure 153/70 H 150/70 H 150/70 H Pulse Oximetry 97 96 Oxygen Delivery Method Room Air Room Air BMI result Body Mass Index 26.5 Labs 01/07/25 16:30 01/09/25 07:17 Medications Medications Current Medications Acetaminophen (Acetaminophen 325 Mg Tablet) 650 mg PO Q6H PRN PRN Reason: Headache/Pain, Scale 1-10 Last Admin: 01/10/25 23:21 Dose: 650 mg Al Hydroxide/Mg Hydroxide (Magnesium Hydrox/Alum Hydrox 30 Ml Oral.Susp) 30 ml PO Q6H PRN PRN Reason: Heartburn/Nausea Albuterol Sulfate (Albuterol Sulfate 90 Mcg 8 Gm Inhaler) 2 puff INHALE Q6H PRN PRN Reason: Wheezing Last Admin: 01/23/25 10:57 Dose: 2 puff Amlodipine Besylate (Amlodipine Besylate 5 Mg Tablet) 5 mg PO DAILY [facility]; Protocol Last Admin: 01/26/25 08:07 Dose: 5 mg Atorvastatin Calcium (Atorvastatin Calcium 40 Mg Tablet) 40 mg PO BEDTIME BUD Last Admin: 01/25/25 21:06 Dose: 40 mg Donepezil HCl (Donepezil Hcl 5 Mg Tablet) 5 mg PO DAILY [facility] Last Admin: 01/26/25 08:07 Dose: 5 mg Guaifenesin (Guaifenesin 200 Mg/10 Ml 10 Ml Liquid) 10 ml PO Q6H PRN PRN Reason: Cough Hydroxyzine HCl (Hydroxyzine Hcl 25 Mg Tablet) 25 mg PO Q6H PRN PRN Reason: Anxiety Last Admin: 01/19/25 20:37 Dose: 25 mg Magnesium Hydroxide (Milk Of Magnesia 30 Ml Oral.Susp) 30 ml PO DAILY PRN PRN Reason: Constipation Nicotine (Nicotine 7 Mg Patch.Td24) 7 mg TRANSDERMA DAILY [facility] Last Admin: 01/26/25 08:10 Dose: Not Given Nicotine Polacrilex (Nicotine Polacrilex 2 Mg Gum) 2 mg BUCCAL Q2H PRN PRN Reason: Nicotine Cravings Pt Own (Umeclidinium -Vilanterol [Anoro Ellipta] 62.5-25 Mcg /Actuation Bl 1 each INHALE RDAILY [facility] Last Admin: 01/26/25 08:07 Dose: 1 each Quetiapine Fumarate (Quetiapine Fumarate 25 Mg Tablet) 25 mg PO Q6H PRN PRN Reason: agitation Quetiapine Fumarate (Quetiapine Fumarate 50 Mg Tablet) 150 mg PO BEDTIME [facility] Last Admin: 01/25/25 21:06 Dose: 150 mg Quetiapine Fumarate (Quetiapine Fumarate 25 Mg Tablet) 25 mg PO DAILY@1600 [facility] Last Admin: 01/26/25 15:00 Dose: 25 mg Allergies Allergies Allergy/AdvReac Type Severity Reaction Status Date / Time aspirin Allergy Unknown Verified 01/07/25 16:17 Assessment & Plan Assessment & Plan (1) COPD (chronic obstructive pulmonary disease): Status: Acute Code(s): J44.9 - Chronic obstructive pulmonary disease, unspecified Assessment and Plan: Dementia with agitation Treatment per psychiatric team COPD/tobacco misuse Continue nicotine patches, continue to encourage smoking cessation Continue Anoro Ellipta and albuterol as needed Not in acute exacerbation on exam, continue to monitor for changes. Hypertension/hyperlipidemia Continue amlodipine and atorvastatin. Blood pressure in acceptable range (2) Cough: Status: Acute Code(s): R05.9 - Cough, unspecified (3) Alzheimer dementia: Status: Acute Code(s): G30.9 - Alzheimer's disease, unspecified; F02.80 - Dementia in other diseases classified elsewhere, unspecified severity, without behavioral disturbance, psychotic disturbance, mood disturbance, and anxiety (4) Agitation due to dementia: Status: Acute Code(s): F03.911 - Unspecified dementia, unspecified severity, with agitation Plan 01/15: calm, cooperative, pleasant in the morning. per staff, sundowning as of 4-5 pm. schedule seroquel 25 mg Q4pm. otherwise continue current mgmt. 01/16: Patient notes that she feels pretty good. She denies anxiety or depression. She denies SI/HI/AH/VH. Per nursing, she has been very confused. Continue current treatment regimen. 01/17: stable presentation. per OT: 01/07 on the MOCA and a 3.6 on the Syed. Difficult care situation at home prob needs higher level of care than fam can provide. family mtg held, LTC will be pursued. 01/18: calm, cooperative, pleasant. asking about discharge. informed her son and SW are working on it. continue current mgmt. 01/19/25: resting in bed after breakfast. Self report not sleeing well last night. Med compliant. No side effects. No med changes. Can be forgetful. She thinks she has is at [facility]- which could be her day program that she used to have activities at. 01/20/25: Knowing she is at the hospital, slept well and has no appetite issues. No side effect noted. Compliant with medications. No other safety concerns. 01/21: no questions or complaints. no behavioral episodes of concern. continue current mgmt. 01/23: start donepezil for AD. med consult for RN's pulmonary findings. otherwise continue current mgmt. 01/24: no change in presentation. continue current mgmt. noted med changes per hospitalist consult. 01/25: stable presentation. asking when she will be discharged, otherwise no complaints or requests. continue current mgmt. 01/26: no change today Reason for continued inpatient stay Substantial Risk for: inability to function Time Spent With Patient Time: Total time managing care of this patient today ____ minutes.
[2025-01-26 20:00] VITALS: BP 132/61; PULSE 73; RESP 16; TEMP 36.6; O2SAT 96
[2025-01-27] MEDS: Nicotine 7 MG PATCH.TD24 TRANSDERMA (08:07)
[2025-01-27] MEDS: PT OWN (Umeclidinium-Vilanterol [Anoro Ellipta] 62.5-25 mcg/actuation bl 1 EACH INHALE (08:09)
[2025-01-27 08:57] VITALS: BP 142/68; PULSE 72; RESP 16; TEMP 36.7; O2SAT 98
--- NOTE | 2025-01-27 16:44 | P.PNPSI_ITS ---
Subjective Subjective Date of Service: 01/27/25 Reason For Visit: si Interim History: Patient seen in the hallway, we went to her room for the encounter today. She was again calm and pleasant, reported her mood as fine and dandy. She denied SI/HI/AVH. She was oriented to self only. She denied having any immediate concerns about her care at this time. Medication Compliance: Yes Side effects from medications: No Attending Groups: Intermittent Review of Systems Acute medical concerns: No Medical Review of Systems: unchanged Mental Status Exam Mental Status Exam Narrative: Appearance: hospital attire, adequate grooming and hygiene Behavior: cooperative with encounter Orientation: alert; oriented to name only Memory: impaired Attention: able to attend to a brief encounter Psychomotor Function: no agitation or slowing Speech: normal rate, tone, volume Mood: fine and dandy Affect: appropriate to context Thought Process: coherent Thought Content: denies SI/HI; poverty of spontaneous material Hallucinations: denies AVH delusions: none evinced Insight: impairment Judgment: impairment Impulsivity: none noted Diagnostics Vital Signs (24Hr): Vital Signs - 24 hr 01/26/25 20:00 01/27/25 08:57 Temperature 97.9 F 98.0 F Pulse Rate 73 72 Respiratory Rate 16 16 Blood Pressure 132/61 142/68 H Pulse Oximetry 96 98 Oxygen Delivery Method Room Air Room Air BMI result Body Mass Index 26.5 Labs 01/07/25 16:30 01/09/25 07:17 Medications Medications Current Medications Acetaminophen (Acetaminophen 325 Mg Tablet) 650 mg PO Q6H PRN PRN Reason: Headache/Pain, Scale 1-10 Last Admin: 01/10/25 23:21 Dose: 650 mg Al Hydroxide/Mg Hydroxide (Magnesium Hydrox/Alum Hydrox 30 Ml Oral.Susp) 30 ml PO Q6H PRN PRN Reason: Heartburn/Nausea Albuterol Sulfate (Albuterol Sulfate 90 Mcg 8 Gm Inhaler) 2 puff INHALE Q6H PRN PRN Reason: Wheezing Last Admin: 01/23/25 10:57 Dose: 2 puff Amlodipine Besylate (Amlodipine Besylate 5 Mg Tablet) 5 mg PO DAILY [facility]; Protocol Last Admin: 01/27/25 09:02 Dose: 5 mg Atorvastatin Calcium (Atorvastatin Calcium 40 Mg Tablet) 40 mg PO BEDTIME [facility] Last Admin: 01/26/25 20:18 Dose: 40 mg Donepezil HCl (Donepezil Hcl 5 Mg Tablet) 5 mg PO DAILY [facility] Last Admin: 01/27/25 08:07 Dose: 5 mg Guaifenesin (Guaifenesin 200 Mg/10 Ml 10 Ml Liquid) 10 ml PO Q6H PRN PRN Reason: Cough Hydroxyzine HCl (Hydroxyzine Hcl 25 Mg Tablet) 25 mg PO Q6H PRN PRN Reason: Anxiety Last Admin: 01/19/25 20:37 Dose: 25 mg Magnesium Hydroxide (Milk Of Magnesia 30 Ml Oral.Susp) 30 ml PO DAILY PRN PRN Reason: Constipation Nicotine (Nicotine 7 Mg Patch.Td24) 7 mg TRANSDERMA DAILY [facility] Last Admin: 01/27/25 08:07 Dose: 7 mg Nicotine Polacrilex (Nicotine Polacrilex 2 Mg Gum) 2 mg BUCCAL Q2H PRN PRN Reason: Nicotine Cravings Pt Own (Umeclidinium -Vilanterol [Anoro Ellipta] 62.5-25 Mcg /Actuation Bl 1 each INHALE RDAILY [facility] Last Admin: 01/27/25 08:09 Dose: 1 each Quetiapine Fumarate (Quetiapine Fumarate 25 Mg Tablet) 25 mg PO Q6H PRN PRN Reason: agitation Quetiapine Fumarate (Quetiapine Fumarate 50 Mg Tablet) 150 mg PO BEDTIME [facility] Last Admin: 01/26/25 20:17 Dose: 150 mg Quetiapine Fumarate (Quetiapine Fumarate 25 Mg Tablet) 25 mg PO DAILY@1600 [facility] Last Admin: 01/27/25 16:36 Dose: 25 mg Allergies Allergies Allergy/AdvReac Type Severity Reaction Status Date / Time aspirin Allergy Unknown Verified 01/07/25 16:17 Assessment & Plan Assessment & Plan (1) COPD (chronic obstructive pulmonary disease): Status: Acute Code(s): J44.9 - Chronic obstructive pulmonary disease, unspecified Assessment and Plan: Dementia with agitation Treatment per psychiatric team COPD/tobacco misuse Continue nicotine patches, continue to encourage smoking cessation Continue Anoro Ellipta and albuterol as needed Not in acute exacerbation on exam, continue to monitor for changes. Hypertension/hyperlipidemia Continue amlodipine and atorvastatin. Blood pressure in acceptable range (2) Cough: Status: Acute Code(s): R05.9 - Cough, unspecified (3) Alzheimer dementia: Status: Acute Code(s): G30.9 - Alzheimer's disease, unspecified; F02.80 - Dementia in other diseases classified elsewhere, unspecified severity, without behavioral disturbance, psychotic disturbance, mood disturbance, and anxiety (4) Agitation due to dementia: Status: Acute Code(s): F03.911 - Unspecified dementia, unspecified severity, with agitation Plan 01/15: calm, cooperative, pleasant in the morning. per staff, sundowning as of 4-5 pm. schedule seroquel 25 mg Q4pm. otherwise continue current mgmt. 01/16: Patient notes that she feels pretty good. She denies anxiety or depression. She denies SI/HI/AH/VH. Per nursing, she has been very confused. Continue current treatment regimen. 01/17: stable presentation. per OT: 01/07 on the MOCA and a 3.6 on the Syed. Difficult care situation at home prob needs higher level of care than fam can provide. family mtg held, LTC will be pursued. 01/18: calm, cooperative, pleasant. asking about discharge. informed her son and SW are working on it. continue current mgmt. 01/19/25: resting in bed after breakfast. Self report not sleeing well last night. Med compliant. No side effects. No med changes. Can be forgetful. She thinks she has is at [facility]- which could be her day program that she used to have activities at. 01/20/25: Knowing she is at the hospital, slept well and has no appetite issues. No side effect noted. Compliant with medications. No other safety concerns. 01/21: no questions or complaints. no behavioral episodes of concern. continue current mgmt. 01/23: start donepezil for AD. med consult for RN's pulmonary findings. otherwise continue current mgmt. 01/24: no change in presentation. continue current mgmt. noted med changes per hospitalist consult. 01/25: stable presentation. asking when she will be discharged, otherwise no complaints or requests. continue current mgmt. 01/26: no change today 01/27: no change today Reason for continued inpatient stay Substantial Risk for: inability to function and rapid decompensation Time Spent With Patient Time: Total time managing care of this patient today __10__ minutes.
[2025-01-27 20:00] VITALS: BP 132/83; PULSE 91; RESP 18; TEMP 37.1; O2SAT 96
[2025-01-28 08:00] VITALS: BP 130/63; PULSE 70; RESP 16; TEMP 36.3; O2SAT 96
[2025-01-28] MEDS: Nicotine 7 MG PATCH.TD24 TRANSDERMA (09:27)
[2025-01-28] MEDS: PT OWN (Umeclidinium-Vilanterol [Anoro Ellipta] 62.5-25 mcg/actuation bl 1 EACH INHALE (09:27)
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
[2025-01-28 20:00] VITALS: BP 153/70; PULSE 83; RESP 18; TEMP 36.4; O2SAT 97
[2025-01-29 08:00] VITALS: BP 132/61; PULSE 71; RESP 17; TEMP 36.4; O2SAT 97
[2025-01-29 08:16] VITALS: BP 132/61
[2025-01-29] MEDS: PT OWN (Umeclidinium-Vilanterol [Anoro Ellipta] 62.5-25 mcg/actuation bl 1 EACH INHALE (08:16)
[2025-01-29] MEDS: Nicotine 7 MG PATCH.TD24 TRANSDERMA (08:20)
--- NOTE | 2025-01-29 10:47 | PC.NURSE ---
Patient was aware of discharge to [facility] today, informed about D/C instructions. Discharge papers and belongings given to the station repairer. Report given to Tere ESTRADA at [facility]. Pt left the unit via ambulance at 10:39.
== END 2025-01-29 10:39 | DRG 57 ==
LOC: HO.ED 01-08 07:31 → HO.PGERI 01-08 15:09
PROVIDERS: Physician Assistant Medical; Psychiatry & Neurology Psychiatry; Admitting Provider Social Worker; Emergency Provider Emergency Medicine; Visit Provider Social Worker
DX: G30.9 Alzheimer's disease, unspecified (principal); F02.811 Dementia in other diseases classified elsewhere, unspecified severity, with agitation; I10 Essential (primary) hypertension; E78.5 Hyperlipidemia, unspecified; J44.9 Chronic obstructive pulmonary disease, unspecified; F17.210 Nicotine dependence, cigarettes, uncomplicated; Z71.6 Tobacco abuse counseling; Z20.822 Contact with and (suspected) exposure to COVID-19; Z79.899 Other long term (current) drug therapy
CPT/HCPCS: 36415; 80053; 80061; 80307; 81001; 82607; 82746; 83036; 83735; 84443; 85025; 87086; 87637; 93005; 99285; S9485

== ENCOUNTER → 2025-01-08 13:10 | Outpatient (BNV) | payer MEDICARE, MEDICAID, SELFPAY | PROVIDERS: Emergency Provider Emergency Medicine; Visit Provider Internal Medicine Cardiovascular Disease | DX: Z13.6 Encounter for screening for cardiovascular disorders (principal) | CPT/HCPCS: 93010 ==

== ENCOUNTER → 2025-01-08 14:39 | Outpatient (BNV) | payer OTHER, SELFPAY | PROVIDERS: Admitting Provider Social Worker; Emergency Provider Emergency Medicine; Visit Provider Nurse Practitioner Family | DX: J44.9 Chronic obstructive pulmonary disease, unspecified (principal) | CPT/HCPCS: 99221 ==

== ENCOUNTER → 2025-01-08 14:39 | Outpatient (BNV) | payer OTHER, SELFPAY | PROVIDERS: Admitting Provider Social Worker; Emergency Provider Emergency Medicine; Visit Provider Nurse Practitioner Psychiatric/Mental Health | DX: G30.9 Alzheimer's disease, unspecified (principal); F02.80 Dementia in other diseases classified elsewhere, unspecified severity, without behavioral disturbance, psychotic disturbance, mood disturbance, and anxiety; J44.9 Chronic obstructive pulmonary disease, unspecified | CPT/HCPCS: 90792; 99231; 99232 ==